=== PATIENT | male | born 1965 | race Caucasian/White ===

== ENCOUNTER 2017-10-28 20:07 | Emergency (ER) | payer MEDICAID ==
[2017-10-28 20:20] VITALS: BP 128/75
--- NOTE | 2017-10-28 22:14 | RADIOLOGY REPORT (SQ) ---
EXAM DESCRIPTION: SACRUM AND COCCYX COMPLETED DATE/TIME: 10/28/2017 10:00 pm REASON FOR STUDY: fall COMPARISON: None. NUMBER OF VIEWS: Three views. TECHNIQUE: AP, lateral, and tilt views of the sacrum and coccyx. LIMITATIONS: None. FINDINGS: MINERALIZATION: Normal. BONES: No acute fracture or dislocation. No worrisome bone lesions. SOFT TISSUES: No soft tissue swelling. No foreign body. OTHER: No other significant finding. IMPRESSION: NEGATIVE STUDY OF THE SACRUM AND COCCYX. TECHNICAL DOCUMENTATION: JOB ID: [id number] [employer]- All Rights Reserved
--- NOTE | 2017-10-28 22:18 | RADIOLOGY REPORT (SQ) ---
EXAM DESCRIPTION: L SPINE WHOLE COMPLETED DATE/TIME: 10/28/2017 10:00 pm REASON FOR STUDY: fall COMPARISON: None. NUMBER OF VIEWS: Five views including obliques. TECHNIQUE: AP, lateral, oblique, and sacral radiographic images acquired of the lumbar spine. LIMITATIONS: None. FINDINGS: MINERALIZATION: Normal. SEGMENTATION: Normal. No transitional anatomy. ALIGNMENT: Normal. VERTEBRAE: Maintained height. No fracture or worrisome bone lesion. DISCS: There is asymmetric decrease in the L2-L3 disc space heights with associated osteophytic lippi ng. POSTERIOR ELEMENTS: Pedicles and facets are intact. No pars defect or posterior arch defects. HARDWARE: None in the spine. PARASPINAL SOFT TISSUES: Normal. PELVIS: Intact as visualized. No fractures or worrisome bone lesions. SI joints intact. OTHER: No other significant finding. IMPRESSION: Degenerative changes as noted above TECHNICAL DOCUMENTATION: JOB ID: [id number] [employer]- All Rights Reserved
--- NOTE | 2017-10-28 22:35 | ER Document Report ---
ED General - General Chief Complaint: Back Pain Stated Complaint: FALL,BACK PAIN Time Seen by Provider: 10/28/17 21:32 Information source: Patient TRAVEL OUTSIDE OF THE [place] IN LAST 30 DAYS: No - HPI Onset: Just prior to arrival - Related Data Allergies/Adverse Reactions: No Known Allergies Allergy (Verified 10/28/17 20:08) Past Medical History - Social History Smoking Status: Unknown if Ever Smoked Family History: Reviewed & Not Pertinent Patient has suicidal ideation: No Patient has homicidal ideation: No - Past Medical History Cardiac Medical History: Reports: Hx Hypertension Pulmonary Medical History: Reports: Hx COPD Renal/ Medical History: Denies: Hx Peritoneal Dialysis Psychiatric Medical History: Reports: Hx Attention Deficit Hyperactivity Disorder, Hx Schizophrenia Past Surgical History: Reports: Hx Appendectomy - Immunizations Hx Diphtheria, Pertussis, Tetanus Vaccination: Yes Review of Systems - Review of Systems Constitutional: No symptoms reported EENT: No symptoms reported Cardiovascular: No symptoms reported Respiratory: No symptoms reported Gastrointestinal: No symptoms reported Genitourinary: No symptoms reported Male Genitourinary: No symptoms reported Musculoskeletal: Back pain Skin: No symptoms reported Hematologic/Lymphatic: No symptoms reported Neurological/Psychological: No symptoms reported Physical Exam - Vital signs Vitals: Temp Pulse Resp BP Pulse Ox 98.5 F 81 20 128/75 H 97 10/28/17 20:19 10/28/17 20:19 10/28/17 20:19 10/28/17 20:19 10/28/17 20:19 - Notes Notes: PHYSICAL EXAMINATION: GENERAL: Well-appearing, well-nourished and in no acute distress. HEAD: Atraumatic, normocephalic. EYES: Pupils equal round and reactive to light, extraocular movements intact, sclera anicteric, conjunctiva are normal. ENT: Nares patent, oropharynx clear without exudates. Moist mucous membranes. NECK: Normal range of motion, supple without lymphadenopathy LUNGS: Breath sounds clear to auscultation bilaterally and equal. No wheezes rales or rhonchi. HEART: Regular rate and rhythm without murmurs ABDOMEN: Soft, nontender, nondistended abdomen. No guarding, no rebound. No masses appreciated. Musculoskeletal: Normal range of motion, no pitting or edema. No cyanosis. 5 out of 5 strength all extremities. Patient ambulatory without dysfunction or cyst. NEUROLOGICAL: Cranial nerves grossly intact. Normal speech, normal gait. Normal sensory, motor exams PSYCH: Normal mood, normal affect. SKIN: Warm, Dry, normal turgor, no rashes or lesions noted. Course - Re-evaluation Re-evalutation: 10/28/17 22:37 Did tell the patient that his x-rays revealed no acute abnormality. He was wondering about a pinched nerve as he has had this in the past and thinks he may have it again. I told him the x-rays only show acute fractures. I told to follow-up with his primary medical doctor for further evaluation if the pain persists. Patient denied any urinary retention weakness in his lower extremities numbness to his groin area or any other neurologic complaints. I did tell him to return to the emergency department immediately if he started having any of these complaints. - Vital Signs Vital signs: Temp Pulse Resp BP Pulse Ox 98.5 F 81 20 128/75 H 97 10/28/17 20:19 10/28/17 20:19 10/28/17 20:19 10/28/17 20:19 10/28/17 20:19 - Diagnostic Test Radiology reviewed: Image reviewed, Reports reviewed Radiology results interpreted by me: 10/28/17 22:38 X-rays of the lumbar and sacral area were negative for any acute findings Discharge - Discharge Clinical Impression: Fall, Back pain Disposition: HOME, SELF-CARE Instructions: Low Back Pain ([facility]), Muscle Strain ([facility]), Ice Packs ([facility]), Warm Packs ([facility]) Referrals: CLAUDIA MCGEE MD [Primary Care Provider] - Follow up in 3-5 days
== END 2017-10-28 22:32 | disposition home or self-care (01) ==
LOC: ER 20:07
DX: M54.9 Dorsalgia, unspecified (principal); I10 Essential (primary) hypertension; J44.9 Chronic obstructive pulmonary disease, unspecified; W19.XXXA Unspecified fall, initial encounter
CPT/HCPCS: 72110; 72220; 99284

== ENCOUNTER 2018-02-02 21:04 | Emergency (ER) | payer MEDICAID ==
[2018-02-02] MEDS ORDERED: DILTIAZEM HCL/D5W 125 MG/125 ML RTUINJ IV PRN (22:34)
[2018-02-02] MEDS ORDERED: DILTIAZEM HCL INJ 25 MG/5 ML VIAL IV ONE (22:34)
[2018-02-02] MEDS ORDERED: DIAZEPAM INJ 10 MG/2 ML DISP.SYRIN IV ONE (22:34)
[2018-02-02] MEDS ORDERED: ASPIRIN 81 MG TABLET, CHEWABLE PO ONE (22:36)
--- NOTE | 2018-02-02 22:37 | ER Document Report ---
ED General - General Chief Complaint: Foot Pain Stated Complaint: FOOT PAIN Time Seen by Provider: 02/02/18 22:10 Cannot obtain history due to: Mentally challenged Notes: Patient is a 52-year-old male with past medical history of schizophrenia and bipolar disorder currently on Seroquel who presents by EMS with complaints of bilateral feet pain. The patient does have somewhat pressured speech at time of presentation, very tangential historian and does struggle to provide appropriate or informative history. He states his only complaint is that his feet hurt and he would like aspirin. Patient states that he does feel like he is having palpitations but does not seem to be concerned about this. He denies any known history of A. fib or any known cardiac history. History is otherwise limited secondary to patient's poor historian status. Patient does seem to be under the influence of amphetamines and does admit to regular use of methamphetamine. TRAVEL OUTSIDE OF THE [place] IN LAST 30 DAYS: No - Related Data Allergies/Adverse Reactions: No Known Allergies Allergy (Verified 10/28/17 20:08) Past Medical History - General Information source: Patient, Emergency Med Personnel Cannot obtain history due to: Mentally challenged - Social History Smoking Status: Current Every Day Smoker Frequency of alcohol use: Occasional Drug Abuse: Methamphetamine Family History: Reviewed & Not Pertinent - Past Medical History Cardiac Medical History: Reports: Hx Hypertension Pulmonary Medical History: Reports: Hx COPD Renal/ Medical History: Denies: Hx Peritoneal Dialysis Psychiatric Medical History: Reports: Hx Attention Deficit Hyperactivity Disorder, Hx Schizophrenia Past Surgical History: Reports: Hx Appendectomy - Immunizations Hx Diphtheria, Pertussis, Tetanus Vaccination: Yes Review of Systems - Review of Systems Notes: Constitutional: Negative for fever. HENT: Negative for sore throat. Eyes: Negative for visual changes. Cardiovascular: Negative for chest pain. Respiratory: Negative for shortness of breath. Gastrointestinal: Negative for abdominal pain, vomiting or diarrhea. Genitourinary: Negative for dysuria. Musculoskeletal: Positive for bilateral lower feet pain Skin: Negative for rash. Neurological: Negative for headaches, weakness or numbness. 10 point ROS negative except as marked above and in HPI. Physical Exam - Vital signs Vitals: Temp Pulse Resp BP Pulse Ox 98.0 F 149 H 18 148/90 H 99 02/02/18 21:55 02/02/18 21:55 02/02/18 21:55 02/02/18 21:55 02/02/18 21:55 Interpretation: Tachycardic Notes: PHYSICAL EXAMINATION: GENERAL: Appears somewhat disheveled but in no acute distress HEAD: Atraumatic, normocephalic. EYES: Pupils equal round and reactive to light, extraocular movements intact, sclera anicteric, conjunctiva are normal. ENT: nares patent, oropharynx clear without exudates. Moist mucous membranes. NECK: Normal range of motion, supple without lymphadenopathy LUNGS: Breath sounds clear to auscultation bilaterally and equal. No wheezes rales or rhonchi. HEART: Irregularly irregular tachycardia without murmurs ABDOMEN: Soft, nontender, normoactive bowel sounds. No guarding, no rebound. No masses appreciated. EXTREMITIES: Normal range of motion, no pitting or edema. No cyanosis. NEUROLOGICAL: No focal neurological deficits. Moves all extremities spontaneously and on command. PSYCH: Moderately pressured speech, tangential thought process, somewhat agitated SKIN: Warm, Dry, normal turgor, there are blisters on the plantar surfaces of the feet bilaterally without any surrounding calluses, erosions or cellulitis Course - Re-evaluation Re-evalutation: 02/02/18 22:36 Patient presents in A. fib with rapid ventricular response and had rates into the 160s at time of my initial assessment but has spontaneously converted back to normal sinus rhythm. This without any medications. His only complaint is bilateral lower extremity pain which is chronic, has been ongoing for several months, patient states is from walking around so much. Patient has very pressured speech, somewhat agitated but is redirectable. Patient denies any illicit drug use but does appear to either be acutely psychotic or heavily under the influence of a stimulant likely amphetamines. Will provide lorazepam , aspirin per patient's request, obtain basic laboratories and reassess. 02/02/18 23:45 Labs unremarkable. Patient continues to be in normal sinus rhythm. He has continued to deny any chest pain or shortness of breath even when he was in A. fib with RVR. He has not provided a urine sample and this will not home management supervisor at this point. Patient continues to be completely asymptomatic. He is now much more calm, relaxed, alert and oriented. No indication for involuntary commitment. I have gone to the bedside explained to the patient at length the need for close outpatient follow-up, and I provided him a referral to cardiology. Given that he is normal sinus rhythm at this time, normal blood pressure, there is no indication for anticoagulation or rate control agents. At this time will discharge with return precautions and follow-up recommendations. Verbal discharge instructions given a the bedside and opportunity for questions given. Medication warnings reviewed. Patient is in agreement with this plan and has verbalized understanding of return precautions and the need for primary care follow-up in the next 24-72 hours. - Vital Signs Vital signs: Temp Pulse Resp BP Pulse Ox 98.0 F 149 H 24 H 136/92 H 97 02/02/18 21:55 02/02/18 21:55 02/03/18 00:01 02/03/18 00:02 02/03/18 00:02 - Laboratory Result Diagrams: 02/02/18 22:25 02/02/18 22:25 Laboratory results interpreted by me: 02/02/18 02/02/18 22:25 22:25 WBC 14.1 H RBC 4.25 L Hgb 13.2 L Monocytes % 13.3 H Absolute Neutrophils 10.3 H Absolute Monocytes 1.9 H Potassium 3.4 L Glucose 116 H - EKG Interpretation by Me Additional EKG results interpreted by me: 02/02/18 23:51 EKG 1: A. fib with rapid ventricular response, rate 163. No ST elevations or depressions. EKG 2, normal sinus rhythm, rate 79. No ST elevations or depressions. QTC is 468. Discharge - Discharge Clinical Impression: Paroxysmal atrial fibrillation with rapid ventricular response, Anxiety, Bilateral foot pain Condition: Good Disposition: HOME, SELF-CARE Additional Instructions: You have paroxysmal atrial fibrillation which means that your heart intermittently beats too quickly and irregularly. You have spontaneously gone back into a normal rhythm tonight. However, most patients who have this condition do go in and out of A. fib. You need to follow-up with cardiology. I have provided you information for a local motor vehicle salesperson. Please contact the office in the morning. Return to the emergency department immediately if you develop chest pain, shortness of breath and pass out, develop a fever, or have any other symptoms that are worrisome to you. Referrals: INES ROCHA MD [ACTIVE STAFF] - Follow up in 3-5 days
[2018-02-02 22:39] LABS: ABSOLUTE BASOPHILS # (AUTO) 0.1 10^3/uL (0.0-0.2); ABSOLUTE LYMPHOCYTES (AUTO) 1.8 10^3/uL (0.5-4.7); ABSOLUTE MONOCYTES (AUTO) 1.9 10^3/uL (0.1-1.4); ABSOLUTE NEUT (AUTO) 10.3 10^3/uL (1.7-8.2); BASOPHILS % (AUTO) 0.4 % (0-2); EOSINOPHILS % (AUTO) 0.1 % (0-6); HEMATOCRIT 39.4 % (37.9-51.0); HEMOGLOBIN 13.2 g/dL (13.5-17.0); MEAN CORPUSCULAR HGB CONC 33.4 g/dL (32.0-36.0); MEAN CORPUSCULAR VOLUME 93 fl (80-97); MONOCYTES % (AUTO) 13.3 % (3-13); PLATELET COUNT 299 10^3/uL (150-450); RED BLOOD COUNT 4.25 10^6/uL (4.35-5.55); RED CELL DISTRIBUTION WIDTH 12.9 % (11.5-14.0); SEGMENTED NEUTROPHILS % (AUTO) 73.2 % (42-78); TOTAL CELLS COUNTED % (AUTO) 100 %; WHITE BLOOD COUNT 14.1 10^3/uL (4.0-10.5)
[2018-02-02 22:58] LABS: ANION GAP 14 (5-19); BLOOD UREA NITROGEN 11 mg/dL (7-20); CALCIUM 9.4 mg/dL (8.4-10.2); CARBON DIOXIDE 26 mmol/L (22-30); CHLORIDE 102 mmol/L (98-107); GLUCOSE 116 mg/dL (75-110); POTASSIUM 3.4 mmol/L (3.6-5.0); SODIUM 142.4 mmol/L (137-145)
[2018-02-02 23:00] LABS: ALCOHOL < 10 mg/dL (NONE DETECTED)
--- NOTE | 2018-02-02 23:54 | EKG REPORT ---
SEVERITY:- ABNORMAL ECG - ATRIAL FIBRILLATION MINIMAL ST DEPRESSION, INFERIOR LEADS PROLONGED QT INTERVAL : Confirmed by: Juana Smith 02-Feb-2018 23:54:04
--- NOTE | 2018-02-02 23:54 | EKG REPORT ---
SEVERITY:- NORMAL ECG - SINUS RHYTHM : Confirmed by: Juana Smith 02-Feb-2018 23:53:54
[2018-02-03 00:11] VITALS: BP 136/92
== END 2018-02-03 00:14 | disposition home or self-care (01) ==
LOC: ER 21:04
DX: I48.0 Paroxysmal atrial fibrillation (principal); F41.9 Anxiety disorder, unspecified; M79.672 Pain in left foot; M79.671 Pain in right foot; F20.9 Schizophrenia, unspecified; F31.9 Bipolar disorder, unspecified; F17.200 Nicotine dependence, unspecified, uncomplicated; I10 Essential (primary) hypertension; J44.9 Chronic obstructive pulmonary disease, unspecified
CPT/HCPCS: 93005; 99285; 96374; 36415; 80307; 85025; 80048; 84484; 93010; J3360

== ENCOUNTER 2018-02-03 02:12 | Emergency (ER) | payer MEDICAID ==
--- NOTE | 2018-02-03 02:24 | ER Document Report ---
ED General - General Stated Complaint: PSYCH EVAL Time Seen by Provider: 02/03/18 02:22 Cannot obtain history due to: Altered mental status Notes: Patient is a 52 year old male past medical history of bipolar disorder, currently on Seroquel who presents by EMS and police after being found naked in the street. No additional history can be obtained from the patient at this point. TRAVEL OUTSIDE OF THE [place] IN LAST 30 DAYS: No - Related Data Allergies/Adverse Reactions: No Known Allergies Allergy (Verified 10/28/17 20:08) Past Medical History - General Information source: Emergency Med Personnel Cannot obtain history due to: Dementia - Social History Smoking Status: Unknown if Ever Smoked Family History: Reviewed & Not Pertinent - Past Medical History Cardiac Medical History: Reports: Hx Hypertension Pulmonary Medical History: Reports: Hx COPD Renal/ Medical History: Denies: Hx Peritoneal Dialysis Psychiatric Medical History: Reports: Hx Attention Deficit Hyperactivity Disorder, Hx Schizophrenia Past Surgical History: Reports: Hx Appendectomy - Immunizations Hx Diphtheria, Pertussis, Tetanus Vaccination: Yes Review of Systems - Review of Systems -: Yes ROS unobtainable due to patient's medical condition Physical Exam - Vital signs Interpretation: Normal Notes: PHYSICAL EXAMINATION: GENERAL: In no distress, mumbling incomprehensible noises HEAD: Atraumatic, normocephalic. EYES: Pupils equal round and reactive to light, extraocular movements intact, sclera anicteric, conjunctiva are normal. ENT: nares patent, oropharynx clear without exudates. Moderately dry mucous membranes y NECK: Normal range of motion, supple without lymphadenopathy LUNGS: Breath sounds clear to auscultation bilaterally and equal. No wheezes rales or rhonchi. HEART: Regular rate and rhythm without murmurs ABDOMEN: Soft, nontender, normoactive bowel sounds. No guarding, no rebound. No masses appreciated. EXTREMITIES: No pitting or edema. No cyanosis. NEUROLOGICAL: No focal neurological deficits. Moves all extremities spontaneously. PSYCH: Moderate and comprehensive will sounds, intermittently yelling SKIN: Warm, Dry, normal turgor, no rashes or lesions noted. Course - Re-evaluation Re-evalutation: 02/03/18 02:22 Patient returns by EMS and police, entirely decompensated from when I discharged him several hours ago. At time of discharge patient was alert, oriented, no longer had pressured speech and was able to verbalize understanding of discharge instructions. Patient was apparently found naked in the middle of the street, had much increased pressured speech, was not redirectable, was placed under involuntary commitment by police on scene and brought back to the emergency department. At time of my assessment the patient has unintelligible speech, yelling intermittently. Physical examination remains unchanged from prior. He continues to be in normal sinus rhythm. It appears that the patient's initial pressured speech at time of prior presentation was likely secondary to underlying decompensated bipolar disorder as opposed to methamphetamine use. I will maintain the patient under involuntary commitment, send complete medical screening laboratories, and have him evaluate psychiatry in the morning. Discharge - Discharge Clinical Impression: Acute psychosis, Agitation Condition: Fair Disposition: PSYCH HOSP/UNIT
[2018-02-03] MEDS ORDERED: HALOPERIDOL LACTATE INJ 5 MG/1 ML VIAL IM ONE (02:44)
[2018-02-03 02:46] LABS: ABSOLUTE BASOPHILS # (AUTO) 0.1 10^3/uL (0.0-0.2); ABSOLUTE LYMPHOCYTES (AUTO) 1.8 10^3/uL (0.5-4.7); ABSOLUTE MONOCYTES (AUTO) 1.8 10^3/uL (0.1-1.4); ABSOLUTE NEUT (AUTO) 7.5 10^3/uL (1.7-8.2); BASOPHILS % (AUTO) 0.8 % (0-2); EOSINOPHILS % (AUTO) 0.3 % (0-6); HEMATOCRIT 39.4 % (37.9-51.0); HEMOGLOBIN 13.1 g/dL (13.5-17.0); MEAN CORPUSCULAR HEMOGLOBIN 30.8 pg (27.0-33.4); MEAN CORPUSCULAR HGB CONC 33.1 g/dL (32.0-36.0); MEAN CORPUSCULAR VOLUME 93 fl (80-97); MONOCYTES % (AUTO) 15.9 % (3-13); PLATELET COUNT 298 10^3/uL (150-450); RED BLOOD COUNT 4.24 10^6/uL (4.35-5.55); TOTAL CELLS COUNTED % (AUTO) 100 %; WHITE BLOOD COUNT 11.2 10^3/uL (4.0-10.5)
[2018-02-03 02:59] LABS: ALANINE AMINOTRANSFERASE 56 U/L (21-72); ALBUMIN 4.2 g/dL (3.5-5.0); ALKALINE PHOSPHATASE 83 U/L (38-126); ANION GAP 15 (5-19); ASPARTATE AMINO TRANSFERASE 61 U/L (17-59); BILIRUBIN,DIRECT 0.3 mg/dL (0.0-0.4); BILIRUBIN,TOTAL 0.8 mg/dL (0.2-1.3); BLOOD UREA NITROGEN 10 mg/dL (7-20); CARBON DIOXIDE 22 mmol/L (22-30); CHLORIDE 106 mmol/L (98-107); GLUCOSE 111 mg/dL (75-110); POTASSIUM 3.5 mmol/L (3.6-5.0); SALICYLATE 1.7 mg/dL (2.0-20.0); SODIUM 142.6 mmol/L (137-145); TOTAL PROTEIN 6.8 g/dL (6.3-8.2)
[2018-02-03 03:09] LABS: ACETAMINOPHEN < 10 ug/mL (10-30); ALCOHOL < 10 mg/dL (NONE DETECTED)
[2018-02-03] MEDS ORDERED: ZIPRASIDONE MESYLATE INJ/PF 20 MG SDV IM ONE (06:17)
--- NOTE | 2018-02-03 07:03 | EKG REPORT ---
SEVERITY:- ABNORMAL ECG - SINUS RHYTHM BORDERLINE LEFT AXIS DEVIATION LOW VOLTAGE IN FRONTAL LEADS PROLONGED QT INTERVAL : Confirmed by: Mikhail Engel MD 03-Feb-2018 07:03:17
--- NOTE | 2018-02-03 09:48 | ER Document Report ---
Doctor's Note Notes: 02/03/18 09:47 Rounds: Chart reviewed. Patient sleeping at this time. He is in four-point restraints because of aggression towards the staff and because of displaying his new body to everyone walking by his room. Patient is here to be evaluated for agitation and aggression with a history of bipolar disorder. He was seen twice yesterday, the first time being discharged, then returning in worse condition. Labs are normal except for a white count of 11,200. Vital signs are all normal. Patient appears to be medically stable for transfer or discharge. Gabriel Neil MD
[2018-02-03 20:32] LABS: APPEARANCE,URINE CLEAR; BILIRUBIN,URINE NEGATIVE (NEGATIVE); COLOR,URINE YELLOW; GLUCOSE, URINE NEGATIVE (NEGATIVE); KETONES,URINE 80 mg/dL (NEGATIVE); LEUKOCYTE ESTERASE,URINE NEGATIVE (NEGATIVE); NITRITE,URINE NEGATIVE (NEGATIVE); PROTEIN,URINE NEGATIVE (NEGATIVE); URINE SPECIFIC GRAVITY 1.013; UROBILINOGEN,URINE NEGATIVE mg/dL (<2.0)
[2018-02-03 20:51] LABS: URINE AMPHETAMINES SCREEN NEGATIVE; URINE BARBITURATES SCREEN NEGATIVE; URINE BENZODIAZEPINES SCREEN UNCONFIRMED POSITIVE; URINE COCAINE SCREEN NEGATIVE; URINE MARIJUANA (THC) SCREEN UNCONFIRMED POSITIVE; URINE METHADONE SCREEN NEGATIVE; URINE PHENCYCLIDINE SCREEN NEGATIVE
--- NOTE | 2018-02-04 09:07 | PSYCHOLOGICAL NOTE ---
<IMER JONAS - Last Filed: 02/04/18 08:35> Psych Note - Psych Note Psych Note: Reason for consult: altered mental status Consent permissions: son and daughter; numbers obtained from chart The patient is a 52-year-old male, with a past history of opiate use. He presents on an IVC filled out by the police after he was found naked in the middle of [facility] and refused to leave. IVC paperwork stated he was aggressive with officers and got combative when they forced him to leave. The mental health team was unable to engage in an assessment yesterday due to his altered mental status. Patient was awake and able to speak with the mental health team today. Patient reported he did not know how he got to the hospital or what happened that required him to be admitted. When asked about if he was using drugs he stated, "probably so." He also stated he is, "clean as of right this second." Patient admitted that he has not been taking suboxone, which is found in the [place] Controlled Substance Reporting System as not having his Suboxone filled since August 2017. Patient was unable to give information about living information or his children's contact information. Patient stated, "he just would like them to come and get him and get out of here." Patient is alert and orientated to person and place. Mood is euthymic with congruent affect. Attention and concentration are poor with perceived lack of eye contact. Obvious psychomotor agitation present. Patient appears to have problems with immediate memory recall but alludes to this "not being the first time and it might take me awhile." Insight, judgment, impulse control are poor due to opiate use. Patient will be reassessd later on in the day. 292.9 (F11.99) Unspecified Opioid-Related Disorder per history of Suboxone use Impression/plan: <FELICITY LIM - Last Filed: 02/05/18 13:38> Psych Note - Psych Note Psych Note: Diagnosis 292.9 (F11.99) Unspecified Opioid-Related Disorder per history of past Suboxone use 298.9 (F29) Unspecified psychosis Medication recommendations per [facility]'s contracted psychiatrist, Dr. Abel GARCÍA are as follows 1. Depakote 500 mg twice daily 2. BuSpar 10 mg twice daily Impression/Plan: patient is recommended to continue under IVC. Patient has been demonstrating paranoia and unable to provide clear information on contacts or history. Patient's toxicology report indicates marijuana and benzodiazepines however patient did receive benzodiazepine during his previous admission ( patient was discharged and returned 1 hour later). Clinician notes there are no opiates identified in the patient's toxicology report. All attempts at contacting family for additional collateral information has been unsuccessful at this time. Medication recommendations have been provided. Patient will be reevaluated. Dr. Taylor was consulted and the care management this patient; attending physician is agreement with augmentations and disposition.
--- NOTE | 2018-02-04 09:35 | ER Document Report ---
Doctor's Note Notes: 02/04/18 09:34 Patient was seen and evaluated this morning. Resting comfortably. No acute distress. Will follow recommendations and plan of our mental health team. Patient not requesting anything at this time. Patient still seems mildly confused. Repeated himself several times during the conversation. 02/04/18 09:57 A review of the records shows the patient was here approximately 3 days ago for atrial fibrillation with a rapid ventricular response. Mental health team states they have no clear reason why he has mental status changes. It is possible he could have had a stroke. Will begin with the CT head and then follow-up with MR brain, ultrasound of the carotids and possible echocardiogram of the heart if needed to rule out potential blood clot with showering effect which could have caused abnormal mental response. 02/04/18 11:41 CT head unremarkable. Proceeding with MRI brain 02/04/18 14:23 Unable to perform MRI because patient became more psychotic so MRI was uncomfortable keeping him. Patient sent back.
[2018-02-04] MEDS ORDERED: LORAZEPAM 1 MG TABLET PO ONE (10:05)
--- NOTE | 2018-02-04 10:41 | RADIOLOGY REPORT (SQ) ---
EXAM DESCRIPTION: CT HEAD WITHOUT COMPLETED DATE/TIME: 02/04/2018 10:24 am REASON FOR STUDY: altered mental status COMPARISON: 12/04/2013. TECHNIQUE: Axial images acquired through the brain without intravenous contrast. Images reviewed wi th bone, brain and subdural windows. Images stored on PACS. All CT scanners at this facility use dose modulation, iterative reconstruction, and/or weight based d osing when appropriate to reduce radiation dose to as low as reasonably achievable (ALARA). [facility]: Dose Right [facility]: CareDose [facility]: Dose Right [facility]: Teradose 4D [facility]: [employer] RADIATION DOSE: CT Rad equipment meets quality standard of care and radiation dose reduction techniq ues were employed. CTDIvol: 64.6 mGy. DLP: 1292 mGy-cm. mGy. LIMITATIONS: None. FINDINGS: VENTRICLES: Normal size and contour. CEREBRUM: No masses. No hemorrhage. No midline shift. No evidence for acute infarction. Normal gra y/white matter differentiation. No areas of low density in the white matter. CEREBELLUM: No masses. No hemorrhage. No alteration of density. No evidence for acute infarction. EXTRAAXIAL SPACES: No fluid collections. No masses. ORBITS AND GLOBE: No intra- or extraconal masses. Normal contour of globe without masses. CALVARIUM: No fracture. PARANASAL SINUSES: No fluid or mucosal thickening. SOFT TISSUES: No mass or hematoma. OTHER: No other significant finding. IMPRESSION: NORMAL BRAIN CT WITHOUT CONTRAST. EVIDENCE OF ACUTE STROKE: NO. COMMENT: Quality ID # [id number]: Final reports with documentation of one or more dose reduction techniques (e.g., Automated exposure control, adjustment of the mA and/or kV according to patient size, use of iterative reconstruction technique) TECHNICAL DOCUMENTATION: JOB ID: [id number] [employer]- All Rights Reserved Reading location - IP/workstation name: [email or web address]
[2018-02-04] MEDS ORDERED: LORAZEPAM 1 MG TABLET ONE (13:27)
[2018-02-04] MEDS ORDERED: LORAZEPAM 1 MG TABLET PO PRN (13:30)
[2018-02-04] MEDS: DIVALPROEX SODIUM 250 MG TAB.SR.24H PO SCH (18:11)
[2018-02-04] MEDS: BUSPIRONE HCL 10 MG TABLET PO SCH (18:12)
[2018-02-04] MEDS ORDERED: CLONIDINE 0.2 MG/24 HR PATCH.TDWK TD ONE (18:47)
[2018-02-05] MEDS ORDERED: ACETAMINOPHEN 325 MG TABLET PO ONE (03:37)
--- NOTE | 2018-02-05 09:19 | ER Document Report ---
Doctor's Note Notes: 02/05/18 12:19 As the rounding physician for our psychiatric patients, I have reviewed the chart, vitals, lab work. Patient has been examined and noted to be stable talkative. I am awaiting mental health in put.
[2018-02-05] MEDS: BUSPIRONE HCL 10 MG TABLET PO SCH ×2 (11:07→18:01)
[2018-02-05] MEDS: DIVALPROEX SODIUM 250 MG TAB.SR.24H PO SCH ×2 (11:08→18:01)
--- NOTE | 2018-02-05 16:18 | PSYCHOLOGICAL NOTE ---
Psych Note - Psych Note Psych Note: Reason for consult: altered mental status Consent permissions: Fredy, older brother The patient is a 52-year-old male, with a past history of opiate use. He presents on an IVC filled out by the police after he was found naked in the middle of [facility] and refused to leave. IVC paperwork stated he was aggressive with officers and got combative when they forced him to leave. The mental health team was unable to engage in an assessment yesterday due to his altered mental status. Clinician contacted [facility]. They disclosed the patient has a diagnosis of schizoaffective; depressive type. There are no known history of inpatient psychiatric treatments. Patient's last outpatient appointment was 09/04/2017. Clinician spoke with Fredy, patient's older brother. He states he saw the patient last weekend through the [employer] store window. He states that patient has always acted like he has mental health issues because he "keeps living in the past not the future." He continues state that "he has been on drugs lately. " He states the patient has a history of crystal meth use "I think he is used much of it... He is crazy and does some stupid stuff." He continues state he does not need to to be in senior living he needs mental health treatment. He continued to state "he goes in senior living and finds God but then forgets about him when he comes out... I cannot do anything with him... I have tried and tried and tried but cannot do anything." Medication recommendations per [facility]'s contracted psychiatrist, Dr. Abel GARCÍA are as follows 1. Depakote 500 mg twice daily 2. BuSpar 10 mg twice daily Diagnosis 295.70 (F25.1) schizoaffective disorder; depressive type per records from [facility] 292.9 (F11.99) Unspecified Opioid-Related Disorder per history of past Suboxone use Impression/Plan: patient is recommended to continue under IVC. Patient has been demonstrating paranoia and unable to provide clear information on contacts or history. Patient's toxicology report indicates marijuana and benzodiazepines however patient did receive benzodiazepine during his previous admission ( patient was discharged and returned 1 hour later). Clinician notes there are no opiates identified in the patient's toxicology report. All attempts at contacting family for additional collateral information has been unsuccessful at this time. Medication recommendations have been provided. Patient will be reevaluated. Dr. Taylor was consulted and the care management this patient; attending physician is agreement with augmentations and disposition.
[2018-02-05] MEDS ORDERED: CLONIDINE 0.2 MG/24 HR PATCH.TDWK TD ONE (17:32)
[2018-02-06 04:53] VITALS: BP 118/72
[2018-02-06] MEDS: DIVALPROEX SODIUM 250 MG TAB.SR.24H PO SCH ×2 (08:54→16:54)
[2018-02-06] MEDS: BUSPIRONE HCL 10 MG TABLET PO SCH ×2 (08:54→16:54)
--- NOTE | 2018-02-06 09:57 | ER Document Report ---
Doctor's Note Notes: 02/06/18 09:56 Rounds: Chart reviewed and patient interviewed. Patient initially, upon presentation, was very agitated and aggressive in his behavior. He had to be restrained. He has a diagnosis of bipolar disorder. Patient thinks he was out of his medicines. Vital signs have all been normal. Lab studies essentially normal with a white count of slightly elevated 11,200 and a potassium of 3.5. Drug screen positive for marijuana. Also positive for benzos, but patient may have received them to sedate him when he came in. Patient appears to be medically stable for transfer or discharge. Gabriel Neil MD
--- NOTE | 2018-02-06 23:33 | PSYCHOLOGICAL NOTE ---
Psych Note - Psych Note Psych Note: Met with Patient for a re-evaluation. He was eating dinner and had an appropriate conversation with regard to his food, his stay at the hospital, etc. He advised he frequently uses methamphetamine and method of injection is a needle. He reported the methamphetamine gave him energy and made his brain feel "crazy." He admitted to getting is disability check at the beginning of each month and spending it on meth and when he has no money left, he is forced to fend for himself. When advised he was going to be discharged this evening, he instantly began acting like a small child, began stating he was "paranoid" and needed to "get my schizophrenia under control", and other similar comments. Patient was advised his presentation over the past few days were not consistent with any known mental health diagnoses and given his depakote level was within therapeutic limits, his behavior was even less likely to be a result of mental health issues and more likely to be related to volitional behavior with secondary gain. In fact, when advised of this information and told he could stop acting the part, he sat up in his chair and appropriately asked if he could finish his dinner and use the bathroom before he left. He was advised he could do both and use the phone to call his brother for a ride home. Patient was alert and oriented to person, place, time and circumstance. Mood was euthymic and affect was mood congruent. He denied suicidal / homicidal ideation, intent or plan. He denied auditory / visual hallucinations and delusions were not present. Thought processes were rational, linear, and organized. Intellectual abilities were estimated within the average range. Attention and concentration was within normal limits. Conversational speech was within normal range for rate, tone, and prosody. Insight, judgment, and impulse control was fair. No medication recommendations were made at this time. Diagnoses: 1. Stimulant Use Disorder, Moderate 2. Homelessness Impression / Plan: Patient is psychiatrically clear for discharge. Patient's presentation is erratic and not consistent with mental health diagnoses. He appears to perform as staff enter his room or when providers attempt to evaluate him. Patient has a long history of methamphetamine use and though reports a history of schizoaffective disorder, it is more likely his reported psychosis and mood difficulties are secondary to his historical drug use. Patient is advised to return to his outpatient provider for re-evaluation and to provide them information regarding his drug use and to consider detox for his substance abuse problem. Patient was provided outpatient resources upon discharge. ED Physician in agreement with recommendation and disposition.
== END 2018-02-06 18:00 | disposition home or self-care (01) ==
LOC: ER 02:12
DX: F23 Brief psychotic disorder (principal); F31.9 Bipolar disorder, unspecified; D72.829 Elevated white blood cell count, unspecified; I10 Essential (primary) hypertension; J44.9 Chronic obstructive pulmonary disease, unspecified; Z78.1 Physical restraint status
CPT/HCPCS: 93005; 99285; 36415; 80307 ×4; 85025; 80053; 81001; 80164; 93010; J1630; J3490 ×7; J3486

== ENCOUNTER 2018-03-26 05:56 | Emergency (ER) | payer MEDICAID ==
--- NOTE | 2018-03-26 06:29 | ER Document Report ---
ED General - General Stated Complaint: PSYCH EVAL Time Seen by Provider: 03/26/18 06:02 Notes: 52-year-old male with a history of schizophrenia presents to the emergency my complaint suicidal thoughts. Patient stated he has not been taking his medications of Seroquel. He states that he was hearing voices and thinks people are out to get him. He has considered suicide and would stab himself in the neck with a knife. Patient denies any physical complaints of chest pain or shortness of breath. He denies any fever chills cough or sore throat. Patient stated he has been in and out of psychiatric institutions quite a bit. The patient does feels if somebody is out to get him. He does seem to have a little insight into why he is paranoid and should be taking his meds. TRAVEL OUTSIDE OF THE [place] IN LAST 30 DAYS: No - Related Data Allergies/Adverse Reactions: No Known Allergies Allergy (Verified 03/05/18 20:53) Past Medical History - Social History Smoking Status: Current Every Day Smoker Family History: Reviewed & Not Pertinent - Past Medical History Cardiac Medical History: Reports: Hx Hypertension Pulmonary Medical History: Reports: Hx COPD Renal/ Medical History: Denies: Hx Peritoneal Dialysis Psychiatric Medical History: Reports: Hx Attention Deficit Hyperactivity Disorder, Hx Schizophrenia Past Surgical History: Reports: Hx Appendectomy - Immunizations Hx Diphtheria, Pertussis, Tetanus Vaccination: Yes Review of Systems - Review of Systems Cardiovascular: denies: Chest pain Respiratory: denies: Cough, Short of breath Gastrointestinal: denies: Abdominal pain Neurological/Psychological: Hallucinations, Suicidal ideation -: Yes All other systems reviewed and negative Physical Exam - Notes Notes: GENERAL_APPEARANCE: well_nourished, alert, cooperative, no_acute_distress, no_ obvious_discomfort. VITALS: reviewed, see vital signs table. HEAD: no_swelling\tenderness on the head. EYES: PERRL, EOMI, conjunctiva_clear. NOSE: no_nasal_discharge. MOUTH: (-)decreased moisture. THROAT: no_throat_inflammation, no_airway_obstruction. no_lymphadenopathy NECK: supple, no_neck_tenderness, (-)thyromegaly. BACK: no_back_tenderness. CHEST_WALL: no_chest_tenderness. LUNGS: no_wheezing, no_rales, no_rhonchi, (-)accessory muscle use, good air exchange bilateral. HEART: normal_rate, normal_rhythm, normal_S1, normal_S2, (-)S3, (-)S4, no_ murmur, no_rub. ABDOMEN: normal_BS, soft, no_abd_tenderness, (-)guarding, (-)rebound, no_ organomegaly, no_abd_masses. EXTREMITIES: good pulses in all_extremities, no_swelling\tenderness in the extremities, no_edema. SKIN: warm, dry, good_color, no_rash. MENTAL_STATUS: speech_clear, oriented_X_3, normal_affect, responds_ appropriately to questions. NEURO: Neg Motor or Sensory Deficits on exam, CN 2-12 intact, DTR 2+ symmetric x 4, No cerbellar signs PSYCH: Patient does endorse suicidal thoughts and the only plan he could come up with was to use a knife to stab himself in the neck. The patient does states he is hearing voices and thinks people are out to get him. Denies any specific visual hallucinations but states he does see shadows from time to time. The patient does seem to have insight into his situation and does state he should be taking his medications but is not taking them. Course - Re-evaluation Re-evalutation: 03/26/18 06:28 The patient was brought in for suicidal thoughts. He does have a loose plan however he may spontaneously made this up. Patient does have a long history of schizophrenia he is endorsing noncompliance with his medications which would explain his paranoia and hallucinations. We will have the patient seen by psychiatry for clearance. I reviewed the patient's laboratory work. The patient is medically stable for inpatient or outpatient psychiatric care is required and recommended by psychiatry. - Laboratory Result Diagrams: 03/26/18 06:30 03/26/18 06:30 Laboratory results interpreted by me: 03/26/18 03/26/18 03/26/18 06:30 06:30 08:45 RBC 4.20 L Hgb 13.4 L Urine Ketones 20 H Urine Urobilinogen 2.0 H Salicylates < 1.0 L Acetaminophen < 10 L Discharge - Discharge Clinical Impression: Suicidal ideations Condition: Good
[2018-03-26 06:40] LABS: ABSOLUTE BASOPHILS # (AUTO) 0.1 10^3/uL (0.0-0.2); ABSOLUTE LYMPHOCYTES (AUTO) 1.9 10^3/uL (0.5-4.7); ABSOLUTE MONOCYTES (AUTO) 1.2 10^3/uL (0.1-1.4); ABSOLUTE NEUT (AUTO) 6.8 10^3/uL (1.7-8.2); BASOPHILS % (AUTO) 0.7 % (0-2); EOSINOPHILS % (AUTO) 0.2 % (0-6); HEMATOCRIT 38.6 % (37.9-51.0); HEMOGLOBIN 13.4 g/dL (13.5-17.0); LYMPHOCYTES % (AUTO) 18.7 % (13-45); MEAN CORPUSCULAR HEMOGLOBIN 31.9 pg (27.0-33.4); MEAN CORPUSCULAR HGB CONC 34.7 g/dL (32.0-36.0); MEAN CORPUSCULAR VOLUME 92 fl (80-97); PLATELET COUNT 261 10^3/uL (150-450); RED CELL DISTRIBUTION WIDTH 13.4 % (11.5-14.0); SEGMENTED NEUTROPHILS % (AUTO) 68.4 % (42-78); TOTAL CELLS COUNTED % (AUTO) 100 %
[2018-03-26 06:53] LABS: ALANINE AMINOTRANSFERASE 25 U/L (21-72); ALBUMIN 4.6 g/dL (3.5-5.0); ALKALINE PHOSPHATASE 75 U/L (38-126); ANION GAP 13 (5-19); ASPARTATE AMINO TRANSFERASE 54 U/L (17-59); BILIRUBIN,DIRECT 0.3 mg/dL (0.0-0.4); BILIRUBIN,TOTAL 0.7 mg/dL (0.2-1.3); BLOOD UREA NITROGEN 17 mg/dL (7-20); CARBON DIOXIDE 30 mmol/L (22-30); CHLORIDE 98 mmol/L (98-107); GLUCOSE 102 mg/dL (75-110); POTASSIUM 4.2 mmol/L (3.6-5.0); SODIUM 141.3 mmol/L (137-145); TOTAL PROTEIN 7.6 g/dL (6.3-8.2)
[2018-03-26 06:55] LABS: ACETAMINOPHEN < 10 ug/mL (10-30); ALCOHOL < 10 mg/dL (NONE DETECTED); SALICYLATE < 1.0 mg/dL (2.0-20.0)
[2018-03-26 09:01] LABS: APPEARANCE,URINE CLEAR; BILIRUBIN,URINE NEGATIVE (NEGATIVE); COLOR,URINE YELLOW; GLUCOSE, URINE NEGATIVE (NEGATIVE); KETONES,URINE 20 mg/dL (NEGATIVE); LEUKOCYTE ESTERASE,URINE NEGATIVE (NEGATIVE); NITRITE,URINE NEGATIVE (NEGATIVE); PROTEIN,URINE NEGATIVE (NEGATIVE); URINE SPECIFIC GRAVITY 1.012
[2018-03-26 09:14] LABS: URINE AMPHETAMINES SCREEN NEGATIVE; URINE BARBITURATES SCREEN NEGATIVE; URINE BENZODIAZEPINES SCREEN NEGATIVE; URINE COCAINE SCREEN NEGATIVE; URINE MARIJUANA (THC) SCREEN NEGATIVE; URINE METHADONE SCREEN NEGATIVE; URINE PHENCYCLIDINE SCREEN NEGATIVE
--- NOTE | 2018-03-26 09:52 | PSYCHOLOGICAL NOTE ---
Psych Note - Psych Note Psych Note: Reason for Consult: suicidal ideation Consent Permissions; son Colby Martell, ; [id number] Sofia 52-year-old male with a reported history of schizophrenia presents to the emergency my complaint suicidal thoughts. Patient stated he has not been taking his medications of Seroquel. He states that he was hearing voices and thinks people are out to get him. He has considered suicide and would stab himself in the neck with a knife. Patient stated he has been in and out of psychiatric institutions quite a bit. The patient does feels if somebody is out to get him. He does seem to have a little insight into why he is paranoid and should be taking his meds. Patient disclosed that he is having problems with confusion and paranoia. Patient disclosed he feels like someone is going to attack him. Patient disclosed that he has been on Seroquel since [facility] put him on it about a month ago. He reports other medications but is unable to disclose what they are. Patient reported that the last 2-3 weeks he has been living with his son however "I left him on [place]... Too much was going on ... I was paranoid...that is why I was staying by the police and lock plater departments." When asked about his drug use be denies any resent use but stated; "they were telling me I got a hold of some bath salts up in [facility]." when asked about thoughts of harming himself or others patient states "no... I do not know... I am confused." Clinician attempted contact with patient's son Colby Martell ebony at [phone]; left message Sofia, , Patient was "in a bad way from a drug" we took him to [facility] and they sent him to [facility] and then went back to [facility]. He was doing really well and was straightened up, "I guaranty you he is using drugs again, that is what he was like last time....It doesn't matter how many times we help him...Last time he was really crazy, somebody had given him something." She told clinician to tell patient to call Karolyn, his ex-, maybe she would assist him. Patient is alert and orientated to person, place, time and circumstance. Mood is euthymic with congruent affect. Patient reports confusion and paranoia however is orientated, provides historic information, and is calmly laying in bed. No psychomotor agitation, makes good eye contact. Patient denies suicidal and homicidal ideation. Patient is not demonstrating any behaviors indicating psychosis i.e. organized linear thought processes. Attention and concentration are fair. Insight, judgment, impulse control are historically poor due to long-term methamphetamine abuse. Clinician met with patient again. Patient complained he has not been able to sleep because the ED is too loud. He disclosed that he does not have anywhere to go because he got into a fight with his son. He reports his son took his debt card. He refused assistance for the [facility]. They started disclosing again that she was scared and that everyone was after him. 292.9 (F15.99) Unspecified stimulant disorder; methamphetamine Homelessness Impression / Plan: Patient cleared from acute psychiatric services. Patient's presentation is erratic and not consistent with mental health diagnoses. He appears to perform as staff enter his room or when providers attempt to evaluate him. Patient has a long history of methamphetamine use and though reports a history of schizoaffective disorder, it is more likely his reported psychosis and mood difficulties are secondary to his historical drug use. Patient reports using bath salts in addition to methamphetamine. Patient is advised to return to his outpatient provider for re-evaluation and to provide them information regarding his drug use and to consider detox for his substance abuse problem. Patient was provided outpatient resources upon discharge. Dr. Taylor was consulted on the care and management of this patient; attending physician in agreement with recommendation and disposition.
[2018-03-26] MEDS ORDERED: OLANZAPINE 5 MG TABLET PO ONE (10:23)
--- NOTE | 2018-03-26 16:10 | ER Document Report ---
Doctor's Note Notes: 03/26/18 16:10 Patient was seen by psychiatry. He was cleared. He responded well to medication and recants any suicidal thoughts. The patient will be discharged home they have arranged follow-up.
[2018-03-26 16:19] VITALS: BP 106/69
--- NOTE | 2018-03-27 23:33 | EKG REPORT ---
SEVERITY:- NORMAL ECG - SINUS RHYTHM : Confirmed by: Juana Smith 27-Mar-2018 23:32:54
== END 2018-03-26 16:18 | disposition home or self-care (01) ==
LOC: ER 05:56
DX: R45.851 Suicidal ideations (principal); F15.20 Other stimulant dependence, uncomplicated; R44.0 Auditory hallucinations; Z79.899 Other long term (current) drug therapy; I10 Essential (primary) hypertension; J44.9 Chronic obstructive pulmonary disease, unspecified; F17.200 Nicotine dependence, unspecified, uncomplicated
CPT/HCPCS: 36415; 80053; 80307; 81001; 85025; 93005; 93010; 99285

== ENCOUNTER 2019-01-03 11:19 | Emergency (ER) | payer MEDICAID, OTHER ==
[2019-01-03] MEDS ORDERED: FENTANYL CITRATE INJ/PF 100 MCG/2 ML AMPUL IV ONE (11:57)
--- NOTE | 2019-01-03 11:59 | ER Document Report ---
ED Medical Screen (RME) - General Chief Complaint: Abdominal Pain Stated Complaint: ABDOMINAL PAIN Time Seen by Provider: 01/03/19 11:47 Primary Care Provider: SCAR DAVIES FNP-C [Primary Care Provider] - Follow up as needed Mode of Arrival: Ambulatory Information source: Patient Notes: 53-year-old male presents emergency department with complaints of pain to a left-sided inguinal hernia. Patient states that he has had a hernia for the last 5 years. He states that the hernia becomes painful when he coughs, blows his nose, lifts things. He states that he is typically able to reduce it but not today. He denies any dysuria, hematuria, increased urgency, increased frequency, nausea, vomiting, diarrhea, constipation. He states that he feels the hernia going down into his left testicle. I have greeted and performed a rapid initial assessment of this patient. A comprehensive ED assessment and evaluation of the patient, analysis of test results and completion of the medical decision making process will be conducted by additional ED providers. PHYSICAL EXAMINATION: GENERAL: Well-appearing, well-nourished and in no acute distress. HEAD: Atraumatic, normocephalic. EYES: Pupils equal round extraocular movements intact, conjunctiva are normal. ENT: Nares patent NECK: Normal range of motion LUNGS: No respiratory distress Musculoskeletal: Normal range of motion NEUROLOGICAL: Normal speech, normal gait. PSYCH: Normal mood, normal affect. SKIN: Warm, Dry, normal turgor, no rashes or lesions noted. TRAVEL OUTSIDE OF THE [place] IN LAST 30 DAYS: No - Related Data Allergies/Adverse Reactions: No Known Allergies Allergy (Verified 01/03/19 11:48) Past Medical History - Social History Chew tobacco use (# tins/day): No Frequency of alcohol use: None Drug Abuse: Marijuana - Past Medical History Cardiac Medical History: Reports: Hx Hypertension Pulmonary Medical History: Reports: Hx COPD Renal/ Medical History: Denies: Hx Peritoneal Dialysis Psychiatric Medical History: Reports: Hx Attention Deficit Hyperactivity Disorder, Hx Schizophrenia Past Surgical History: Reports: Hx Appendectomy - Immunizations Hx Diphtheria, Pertussis, Tetanus Vaccination: Yes Physical Exam - Vital signs Vitals: Temp Pulse Resp BP Pulse Ox 98.1 F 78 20 124/77 97 01/03/19 11:33 01/03/19 11:33 01/03/19 11:33 01/03/19 11:33 01/03/19 11:33 Course - Vital Signs Vital signs: Temp Pulse Resp BP Pulse Ox 98.1 F 78 20 124/77 97 01/03/19 11:33 01/03/19 11:33 01/03/19 11:33 01/03/19 11:33 01/03/19 11:33 Doctor's Discharge - Discharge Referrals: SCAR DAVIES, [facility] [Primary Care Provider] - Follow up as needed
--- NOTE | 2019-01-03 12:04 | ER Document Report ---
ED General - General Chief Complaint: Abdominal Pain Stated Complaint: ABDOMINAL PAIN Time Seen by Provider: 01/03/19 11:47 Primary Care Provider: SCAR DAVIES FNP-C [COMMUNITY BASED STAFF] - Follow up as needed Mode of Arrival: Ambulatory Notes: Patient is a 53-year-old male with history of inguinal hernia that presents to the emergency department for chief complaint of left inguinal hernia pain. Patient states that he is been dealing with a left inguinal hernia for at least the last 6 months if not longer, where he states has been coming easier for her to come out, he has been able to reduce it, it took longer most recently, readily down, and slowly work it back and he felt pain into his testicles at that time as well. He was able to reduce it however. He states that if he sneezes or coughs, he feels it pop out. He has not seen a surgeon about this yet although he has been intending to. He denies noting any fevers, chills, nausea, vomiting, dysuria, hematuria. Past Medical History: Insomnia Past Surgical History: Appendectomy Social History: Admits to smoking cigarettes daily, denies alcohol use, denies current illicit drug use. Family History: Reviewed and noncontributory for presenting illness Allergies: Reviewed, see documented allergy list. REVIEW OF SYSTEMS: Other than noted above, the 12 point review of systems was reviewed with the patient and were negative, all pertinent findings are included in the HPI. PHYSICAL EXAMINATION: Vital signs reviewed, nursing noted reviewed. GENERAL: Well-appearing, well-nourished and in no acute distress. HEAD: Atraumatic, normocephalic. EYES: Eyes appear normal, extraocular movements intact, sclera anicteric, conjunctiva are normal. ENT: nares patent, oropharynx clear without exudates. Moist mucous membranes. NECK: Normal range of motion, supple without lymphadenopathy LUNGS: Breath sounds clear to auscultation bilaterally and equal. No wheezes rales or rhonchi. HEART: Regular rate and rhythm without murmurs ABDOMEN: Soft, nontender, normoactive bowel sounds. No rebound, guarding, or rigidity. No masses appreciated. With Valsalva, there is a palpable bulge, with cough along the left inguinal line, reduced at this time with the patient in bed. Male genital: Testicles of normal vertical lie, nontender to palpate, no bowel palpated in the scrotal sac, no erythema or edema to the scrotum. Penis appears normal, no blood at the meatus, no discharge. EXTREMITIES: Nontender, good range of motion, no pitting or edema. NEUROLOGICAL: No focal neurological deficits. Moves all extremities spontaneously Motor and sensory grossly intact on exam. PSYCH: Normal mood, normal affect. SKIN: Warm, Dry, normal turgor, no rashes or lesions noted on exposed skin TRAVEL OUTSIDE OF THE [place] IN LAST 30 DAYS: No - Related Data Allergies/Adverse Reactions: No Known Allergies Allergy (Verified 01/03/19 11:48) Past Medical History - General Information source: Patient - Social History Smoking Status: Current Every Day Smoker Chew tobacco use (# tins/day): No Frequency of alcohol use: None Drug Abuse: Marijuana Family History: Reviewed & Not Pertinent Patient has suicidal ideation: No Patient has homicidal ideation: No - Past Medical History Cardiac Medical History: Reports: Hx Hypertension Pulmonary Medical History: Reports: Hx COPD Renal/ Medical History: Denies: Hx Peritoneal Dialysis Psychiatric Medical History: Reports: Hx Attention Deficit Hyperactivity Disorder, Hx Schizophrenia Past Surgical History: Reports: Hx Appendectomy - Immunizations Hx Diphtheria, Pertussis, Tetanus Vaccination: Yes Physical Exam - Vital signs Vitals: Temp Pulse Resp BP Pulse Ox 98.1 F 78 20 124/77 97 01/03/19 11:33 01/03/19 11:33 01/03/19 11:33 01/03/19 11:33 01/03/19 11:33 Course - Re-evaluation Re-evalutation: Patient seen and examined vital signs reviewed. Laboratory data and imaging were ordered as appropriate for the patient's presenting symptoms and complaint, with consideration of any critical or life threatening conditions that may be associated with their obtained history and exam as noted above. Patient was treated with fentanyl for pain up front from the triage provider Results were reviewed when available and demonstrated essentially unremarkable blood work, only mild anemia, no leukocytosis, lactic acid normal, CT imaging was ordered by triage provider, and demonstrated herniation of the rectosigmoid colon into the left inguinal region. The patient was re-evaluated and was stable, his hernia was reducible, at this time I do not feel that he needs to be admitted to the hospital, but does need more urgent surgical consult, as an outpatient to have his inguinal hernia corrected, advised that he needs to make a phone call to set up an appointment with the surgical clinic Evaluation was most consistent with left inguinal hernia, advised outpatient follow-up, as patient will need surgical repair of the hernia. Results were discussed with the patient at this point, after careful considerat ion I feel that that patient can be discharged from the emergency department, the patient was educated treatments and reasons to return to the emergency department based on their presumed diagnosis as noted above, they were advised to followup with a primary care physician in 2-3 days. Patient was agreeable to plan of care. *Note is created using voice recognition software and may contain spelling, syntax or grammatical errors. Laboratory 01/03/19 01/03/19 01/03/19 12:25 12:25 12:25 WBC 8.9 RBC 4.21 L Hgb 13.1 L Hct 38.4 MCV 91 MCH 31.2 MCHC 34.1 RDW 13.2 Plt Count 337 Seg Neutrophils % 67.1 Lymphocytes % 23.7 Monocytes % 7.3 Eosinophils % 1.3 Basophils % 0.6 Absolute Neutrophils 6.0 Absolute Lymphocytes 2.1 Absolute Monocytes 0.7 Absolute Eosinophils 0.1 Absolute Basophils 0.1 Sodium 139.8 Potassium 4.7 Chloride 105 Carbon Dioxide 26 Anion Gap 9 BUN 15 Creatinine 0.87 Est GFR ( Amer) > 60 Est GFR (Non-Af Amer) > 60 Glucose 97 Lactic Acid 0.7 Calcium 9.1 Total Bilirubin 0.5 Direct Bilirubin 0.2 Neonat Total Bilirubin Not Reportable Neonat Direct Bilirubin Not Reportable Neonat Indirect Bili Not Reportable AST 21 ALT 16 L Alkaline Phosphatase 71 Total Protein 6.6 Albumin 4.1 Urine Color Urine Appearance Urine pH Ur Specific [place] Urine Protein Urine Glucose (UA) Urine Ketones Urine Blood Urine Nitrite Urine Bilirubin Urine Urobilinogen Ur Leukocyte Esterase Urine WBC (Auto) Urine Mucus (Auto) Urine Ascorbic Acid 01/03/19 14:20 WBC RBC Hgb Hct MCV MCH MCHC RDW Plt Count Seg Neutrophils % Lymphocytes % Monocytes % Eosinophils % Basophils % Absolute Neutrophils Absolute Lymphocytes Absolute Monocytes Absolute Eosinophils Absolute Basophils Sodium Potassium Chloride Carbon Dioxide Anion Gap BUN Creatinine Est GFR ( Amer) Est GFR (Non-Af Amer) Glucose Lactic Acid Calcium Total Bilirubin Direct Bilirubin Neonat Total Bilirubin Neonat Direct Bilirubin Neonat Indirect Bili AST ALT Alkaline Phosphatase Total Protein Albumin Urine Color STRAW Urine Appearance CLEAR Urine pH 7.0 Ur Specific [place] 1.009 Urine Protein NEGATIVE Urine Glucose (UA) NEGATIVE Urine Ketones NEGATIVE Urine Blood NEGATIVE Urine Nitrite NEGATIVE Urine Bilirubin NEGATIVE Urine Urobilinogen NEGATIVE Ur Leukocyte Esterase NEGATIVE Urine WBC (Auto) 1 Urine Mucus (Auto) RARE Urine Ascorbic Acid NEGATIVE Abdomen/Pelvis CT 01/03/19 11:53 IMPRESSION: Findings consistent with transient herniation of rectosigmoid colon into left inguinal hernia. Small bilateral nonobstructive renal calculi. 01/03/19 15:12 - Vital Signs Vital signs: Temp Pulse Resp BP Pulse Ox 98.3 F 58 L 16 109/70 99 01/03/19 14:32 01/03/19 14:32 01/03/19 14:32 01/03/19 14:32 01/03/19 14:32 - Laboratory Result Diagrams: 01/03/19 12:25 01/03/19 12:25 Laboratory results interpreted by me: 01/03/19 01/03/19 12:25 12:25 RBC 4.21 L Hgb 13.1 L ALT 16 L Discharge - Discharge Clinical Impression: Inguinal hernia Qualifiers: Obstruction and gangrene presence: without obstruction or gangrene Laterality: unilateral Recurrence: not specified as recurrent Qualified Code(s): K40.90 - Unilateral inguinal hernia, without obstruction or gangrene, not specified as recurrent Condition: Stable Disposition: HOME, SELF-CARE Instructions: Hernia ([facility]) Additional Instructions: Please follow-up with the surgeon, call for an appointment today, you will need this surgically repaired, you should call on Saturday to schedule appointment as soon as possible, if in the meantime, if this seems to get worse or you are having worsening symptoms, you can always return to the emergency department to be reevaluated. Referrals: SCAR DAVIES FNP-C [COMMUNITY BASED STAFF] - Follow up in 3-5 days ADY GUZMAN MD [[facility]] - Follow up in 3-5 days (call on Saturday to schedule appointment. )
[2019-01-03 12:58] LABS: ABSOLUTE BASOPHILS # (AUTO) 0.1 10^3/uL (0.0-0.2); ABSOLUTE EOSINOPHILS # (AUTO) 0.1 10^3/uL (0.0-0.6); ABSOLUTE LYMPHOCYTES (AUTO) 2.1 10^3/uL (0.5-4.7); ABSOLUTE MONOCYTES (AUTO) 0.7 10^3/uL (0.1-1.4); BASOPHILS % (AUTO) 0.6 % (0-2); EOSINOPHILS % (AUTO) 1.3 % (0-6); HEMATOCRIT 38.4 % (37.9-51.0); HEMOGLOBIN 13.1 g/dL (13.5-17.0); LYMPHOCYTES % (AUTO) 23.7 % (13-45); MEAN CORPUSCULAR HEMOGLOBIN 31.2 pg (27.0-33.4); MEAN CORPUSCULAR HGB CONC 34.1 g/dL (32.0-36.0); MEAN CORPUSCULAR VOLUME 91 fl (80-97); MONOCYTES % (AUTO) 7.3 % (3-13); PLATELET COUNT 337 10^3/uL (150-450); RED BLOOD COUNT 4.21 10^6/uL (4.35-5.55); RED CELL DISTRIBUTION WIDTH 13.2 % (11.5-14.0); SEGMENTED NEUTROPHILS % (AUTO) 67.1 % (42-78); TOTAL CELLS COUNTED % (AUTO) 100 %; WHITE BLOOD COUNT 8.9 10^3/uL (4.0-10.5)
[2019-01-03 13:22] LABS: ALANINE AMINOTRANSFERASE 16 U/L (21-72); ALBUMIN 4.1 g/dL (3.5-5.0); ALKALINE PHOSPHATASE 71 U/L (38-126); ANION GAP 9 (5-19); ASPARTATE AMINO TRANSFERASE 21 U/L (17-59); BILIRUBIN,DIRECT 0.2 mg/dL (0.0-0.4); BILIRUBIN,TOTAL 0.5 mg/dL (0.2-1.3); BLOOD UREA NITROGEN 15 mg/dL (7-20); CALCIUM 9.1 mg/dL (8.4-10.2); CARBON DIOXIDE 26 mmol/L (22-30); CHLORIDE 105 mmol/L (98-107); GLUCOSE 97 mg/dL (75-110); POTASSIUM 4.7 mmol/L (3.6-5.0); SODIUM 139.8 mmol/L (137-145); TOTAL PROTEIN 6.6 g/dL (6.3-8.2)
[2019-01-03 14:48] LABS: APPEARANCE,URINE CLEAR; BILIRUBIN,URINE NEGATIVE (NEGATIVE); COLOR,URINE STRAW; GLUCOSE, URINE NEGATIVE (NEGATIVE); KETONES,URINE NEGATIVE (NEGATIVE); LEUKOCYTE ESTERASE,URINE NEGATIVE (NEGATIVE); NITRITE,URINE NEGATIVE (NEGATIVE); PROTEIN,URINE NEGATIVE (NEGATIVE); URINE SPECIFIC GRAVITY 1.009; UROBILINOGEN,URINE NEGATIVE mg/dL (<2.0)
--- NOTE | 2019-01-03 15:03 | RADIOLOGY REPORT (SQ) ---
EXAM DESCRIPTION: CT ABD/PELVIS WITH IV ONLY COMPLETED DATE/TIME: 01/03/2019 2:18 pm REASON FOR STUDY: L inguinal hernia COMPARISON: None. TECHNIQUE: CT scan of the abdomen and pelvis performed using helical scanning technique with dynamic intravenous contrast injection. No oral contrast. Images reviewed with lung, soft tissue, and bone windows. Reconstructed coronal and sagittal MPR images reviewed. Delayed images for evaluation of the urinary system also acquired. All images stored on PACS. All CT scanners at this facility use dose modulation, iterative reconstruction, and/or weight based d osing when appropriate to reduce radiation dose to as low as reasonably achievable (ALARA). [facility]: Dose Right [facility]: CareDose [facility]: Dose Right [facility]: Teradose 4D [facility]: [employer] CONTRAST TYPE AND DOSE: contrast/concentration: Isovue 350.00 mg/ml; Total Contrast Delivered: 95.0 ml; Total Saline Delivered: 72.0 ml RENAL FUNCTION: Creatinine: 0.87. RADIATION DOSE: CT Rad equipment meets quality standard of care and radiation dose reduction techniq ues were employed. CTDIvol: 7.3 - 10.2 mGy. DLP: 964 mGy-cm.. LIMITATIONS: None. FINDINGS: LOWER CHEST: No abnormality. LIVER: No abnormality. SPLEEN: No abnormality. . PANCREAS: No abnormality. GALLBLADDER: No abnormality. . ADRENAL GLANDS: No abnormality. RIGHT KIDNEY AND URETER: Nonobstructing calculus lower pole right kidney. LEFT KIDNEY AND URETER: Cortical cyst upper pole left kidney. Nonobstructing calculi left kidney. AORTA AND VESSELS atherosclerotic change abdominal aorta. Atherosclerotic change iliac and femoral v essels. No dissection. Renal arteries, SMA, celiac without stenosis. RETROPERITONEUM: No retroperitoneal adenopathy, hemorrhage or masses. BOWEL AND PERITONEAL CAVITY: Constipation. APPENDIX: Status post appendectomy by history. PELVIS: Urinary bladder: Thickening of the bladder wall most likely due to decompressed state. Pros palafox and seminal vesicles: No abnormality. ABDOMINAL WALL: Right inguinal hernia containing fat. Left inguinal hernia demonstrating transient h erniation of proximal rectosigmoid colon into the hernia on immediate images not seen on delayed imag es. BONES: Multilevel lumbar spondylosis. Degenerative disc disease at L2-3. IMPRESSION: Findings consistent with transient herniation of rectosigmoid colon into left inguinal h ernia. Small bilateral nonobstructive renal calculi. TECHNICAL DOCUMENTATION: JOB ID: [id number] [facility] [id number] Quality ID # [id number]: Final reports with documentation of one or more dose reduction techniques (e.g., Au tomated exposure control, adjustment of the mA and/or kV according to patient size, use of iterative reconstruction technique) 2010 [employer]- All Rights Reserved Reading location - IP/workstation name: [email or web address]
[2019-01-03 15:34] VITALS: BP 116/80
== END 2019-01-03 15:34 | disposition home or self-care (01) ==
LOC: ER 11:19
DX: K40.90 Unilateral inguinal hernia, without obstruction or gangrene, not specified as recurrent (principal); R10.32 Left lower quadrant pain; F17.210 Nicotine dependence, cigarettes, uncomplicated; I10 Essential (primary) hypertension; J44.9 Chronic obstructive pulmonary disease, unspecified
CPT/HCPCS: 99284; 96374; 36415; 83605; 85025; 80053; 81001; 74177; J3010

== ENCOUNTER 2019-02-13 07:59 | Day surgery (SDC) | payer MEDICAID ==
[~2019-02-13 07:59] MED LIST: CEFAZOLIN 2 GM/D5W RTU 2 GM/50 ML RTUPB IV ONE; CEFAZOLIN 2 GM/D5W RTU 2 GM/50 ML RTUPB IV PRN; IBUPROFEN 800 MG in NORMAL SALINE 250 ML IV PRN; LACTATED RINGERS 1000 ML IV PRN; LIDOCAINE 0.5% INJ-PF (5 MG/ML) 50 ML SDV SUBCUT PRN; RINGERS SOLUTION,LACTATED 1,000 ML IV PRN
[2019-02-13] MEDS ORDERED: ALBUTEROL SULFATE 0.083% NEB 2.5 MG/3 ML AMPUL NEB ONE (08:35)
--- NOTE | 2019-02-13 08:41 | RADIOLOGY REPORT (SQ) ---
EXAM DESCRIPTION: CHEST SINGLE VIEW COMPLETED DATE/TIME: 02/13/2019 8:36 am REASON FOR STUDY: preop COMPARISON: 10/07/2016 EXAM PARAMETERS: NUMBER OF VIEWS: One view. TECHNIQUE: Single frontal radiographic view of the chest acquired. RADIATION DOSE: NA LIMITATIONS: None. FINDINGS: LUNGS AND PLEURA: No opacities, masses or pneumothorax. No pleural effusion. MEDIASTINUM AND HILAR STRUCTURES: No masses. Contour normal. HEART AND VASCULAR STRUCTURES: Heart normal in size. Normal vasculature. BONES: No acute findings. HARDWARE: None in the chest. OTHER: No other significant finding. IMPRESSION: NO ACUTE RADIOGRAPHIC FINDING IN THE CHEST. TECHNICAL DOCUMENTATION: JOB ID: [id number] [employer]- All Rights Reserved Reading location - IP/workstation name: [email or web address]
[2019-02-13 09:03] LABS: ANION GAP 6 (5-19); BLOOD UREA NITROGEN 15 mg/dL (7-20); CALCIUM 9.1 mg/dL (8.4-10.2); CARBON DIOXIDE 28 mmol/L (22-30); CHLORIDE 105 mmol/L (98-107); GLUCOSE 95 mg/dL (75-110); POTASSIUM 4.3 mmol/L (3.6-5.0); SODIUM 138.9 mmol/L (137-145)
[2019-02-13] MEDS ORDERED: GLYCOPYRROLATE 1 MG/5 ML SYRINGE ONE (10:16)
[2019-02-13] MEDS ORDERED: SUCCINYLCHOLINE CHLORIDE INJ 200 MG/10 ML VIAL ONE (10:16)
[2019-02-13] MEDS ORDERED: ROCURONIUM BROMIDE INJ 50 MG/5 ML VIAL IV ONE (10:16)
[2019-02-13] MEDS ORDERED: NEOSTIGMINE METHYLSULFATE 10 MG/10 ML VIAL ONE (10:16)
[2019-02-13] MEDS ORDERED: KETOROLAC TROMETHAMINE 60 MG/2 ML SDV ONE (10:16)
[2019-02-13] MEDS ORDERED: EPHEDRINE SULFATE INJ 50 MG/1 ML AMPULE ONE (10:33)
[2019-02-13] MEDS ORDERED: ONDANSETRON HCL INJ/PF 4 MG/2 ML SDV ONE (10:33)
[2019-02-13] MEDS ORDERED: HYDROMORPHONE HCL INJ/PF 2 MG/ML AMPULE ONE (10:33)
[2019-02-13] MEDS ORDERED: PROMETHAZINE HCL INJ 25 MG/1 ML VIAL ONE (10:33)
[2019-02-13] MEDS ORDERED: FENTANYL CITRATE INJ/PF 100 MCG/2 ML AMPUL ONE (10:33)
[2019-02-13] MEDS ORDERED: DEXAMETHASONE SOD PHOSPHATE INJ 4 MG/1 ML VIAL ONE (10:33)
[2019-02-13] MEDS ORDERED: MIDAZOLAM 2 MG/2 ML INJ ONE (10:33)
[2019-02-13] MEDS ORDERED: PROPOFOL INJ 200 MG/20 ML VIAL IV ONE (10:34)
[2019-02-13] MEDS ORDERED: ACETAMINOPHEN 1,000 MG/100 ML RTUPB IV ONE (10:34)
[2019-02-13] MEDS ORDERED: BUPIVACAINE HCL 0.25 % INJ/PF (2.5 MG/1 ML) 30 ML VIAL ONE (10:34)
[2019-02-13] MEDS ORDERED: DIPHENHYDRAMINE HCL 50 MG/ML VIAL IV PRN (11:05)
[2019-02-13] MEDS ORDERED: PROMETHAZINE HCL INJ 25 MG/1 ML VIAL IV PRN ×2 (11:05)
[2019-02-13] MEDS ORDERED: MORPHINE SULFATE 10 MG/ML INJ IV PRN (11:05)
[2019-02-13] MEDS ORDERED: MEPERIDINE HCL/PF INJ 25 MG/1 ML DISP.SYRIN IV PRN (11:05)
[2019-02-13] MEDS ORDERED: FENTANYL CITRATE INJ/PF 100 MCG/2 ML AMPUL IV PRN ×3 (11:05)
--- NOTE | 2019-02-13 13:16 | Discharge Summary ---
Discharge Summary (SDC) - Discharge Final Diagnosis: Bilateral indirect inguinal hernias. Date of Surgery: 02/13/19 Discharge Date: 02/13/19 Condition: Stable Treatment or Instructions: Discharge home. Diet as tolerated. Activity: No lifting greater than 10 pounds x 6 weeks. Follow-up with me in 7-10 days. [place] 10/325 mg p.o. every 6 hours as needed for pain. Okay to shower in 48 hours. No tub baths or swimming pools times 2 weeks. Discharge Diet: As Tolerated Respiratory Treatments at Home: Deep Breathing/Coughing, Incentive Spirometer Discharge Activity: No Lifting Over 10 Pounds Home Care Assistance: None Needed Report the Following to Your Physician Immediately: Shortness of Breath, Nausea, Vomiting, Fever over 101 Degrees, Unusual Bleeding, Redness
[2019-02-13] MEDS: FENTANYL CITRATE INJ/PF 100 MCG/2 ML AMPUL ONE ×2 (13:20→13:30)
--- NOTE | 2019-02-13 13:25 | Operative Report ---
Nonrecallable Operative Report DATE OF SURGERY: 02/13/19 PREOPERATIVE DIAGNOSIS: Bilateral inguinal hernias POSTOPERATIVE DIAGNOSIS: Bilateral indirect inguinal hernias. OPERATION: Robot-assisted laparoscopic bilateral inguinal hernia repair with mesh. SURGEON: SURJIT LIGHT 1ST [employer] TECHNICIAN: CAROLE GIRON ANESTHESIA: GA TISSUE REMOVED OR ALTERED: None COMPLICATIONS: None apparent ESTIMATED BLOOD LOSS: Minimal PROCEDURE: Drains/implants: Large left and right 3 DMax inguinal hernia mesh. Procedure in detail: After informed consent was obtained, the patient was brought to the operating room and laid in the supine position. The area of the abdomen was prepped and draped in a normal sterile fashion. A supraumbilical incision was created with a 15 blade scalpel. The incision was deepened using blunt dissection. The linea alba fascia was incised sharply, the abdomen was entered sharply. The balloon trocar was inserted, and pneumoperitoneum was achieved. 2 8 mm right and left lateral abdominal wall robotic trochars were then placed under direct laparoscopic visualization. The robot was then brought over the patient and docked appropriately. I then assumed my position at the surgeon's console. Attention was turned to the right groin. An indirect inguinal hernia defect was easily identified. An incision was created in the peritoneum 2-3 cm superior to hernia defect. Dissection was carried out of the preperitoneal space using sharp dissection, blunt dissection, and electrocautery. The inguinal hernia defect was easily identified. The hernia sac was freed from the cord structures, taking great care not to injure the cord structures. Once the space was completely opened, a large right-sided 3 DMax inguinal hernia mesh was placed into the preperitoneal space. It was sutured medially and superiorly using 2-0 Vicryl suture. The peritoneum was then closed using 2-0 V lock suture in simple running fashion. Once this was completed, attention was turned to the left side. The left side had a much larger hernia evident. It was indirect as well. The peritoneum was scored 2-3 cm superior to the inguinal hernia defect. A preperitoneal dissection was undertaken. This was done using sharp dissection, blunt dissection, and electrocautery. The hernia sac was very large, however it was carefully away from the cord structures. Great care was taken not to injure the cord structures. Once the hernia sac was freed, it was everted. A large left-sided 3 DMax inguinal hernia mesh was placed into the preperitoneal space. It was sutured to the abdominal wall medially and superiorly. Once this was completed, the mesh was found to cover the defect adequately. The peritoneum was closed using 2-0 V lock suture in simple running fashion. The large hernia sac was incorporated into the closure. Once this was completed, the robot was undocked and I scrubbed back into the case. The 8 mm trocar sites were closed using 0 Vicryl suture in simple interrupted fashion using the Endo Close device. The balloon trocar was removed, and pneumoperitoneum was relieved. The supraumbilical fascia was closed using 0 Vicryl suture in [id number] fashion. The overlying skin was closed using 4-0 Vicryl Rapide suture in subcuticular fashion. Dressings were fashioned, and the procedure was concluded. All sponge, instrument, and needle counts were correct x2. Condition: Stable. Carole Giron PA-C was scrubbed and present the entirety of the procedure. She assisted with all portions of the procedure including placement of the trochars, docking of the robot, exchanging the robotic instruments, closure of the fascia, and closure of the skin.
[2019-02-13] MEDS ORDERED: HYDROCODONE/ACETAMINOPHEN 10-325 MG TABLET PO PRN (13:50)
[2019-02-13 15:47] VITALS: BP 133/82
--- NOTE | 2019-02-13 23:02 | EKG REPORT ---
SEVERITY:- NORMAL ECG - SINUS RHYTHM : Confirmed by: Juana Smith 13-Feb-2019 23:02:01
== END 2019-02-13 15:40 | disposition home or self-care (01) ==
LOC: OROUT 07:59
PROVIDERS: ATTEND Surgery
DX: K40.20 Bilateral inguinal hernia, without obstruction or gangrene, not specified as recurrent (principal); I10 Essential (primary) hypertension; F17.210 Nicotine dependence, cigarettes, uncomplicated; Z79.899 Other long term (current) drug therapy
CPT/HCPCS: 49650; S2900; 36415; 71045; 80048; 840; 93005; 93010; C1781; J0131; J0330; J0690; J1100; J1170; J1741; J1885; J2250; J2405; J2550; J2704; J3010; J3490; J7050

== ENCOUNTER 2019-02-14 12:58 | Emergency (ER) | payer MEDICAID ==
--- NOTE | 2019-02-14 13:33 | ER Document Report ---
ED Medical Screen (RME) - General Chief Complaint: Abdominal Pain Stated Complaint: ABDOMINAL PAIN Time Seen by Provider: 02/14/19 13:30 Mode of Arrival: Ambulatory Information source: Patient TRAVEL OUTSIDE OF THE [place] IN LAST 30 DAYS: No - HPI Patient complains to provider of: abd pain Onset: This morning - pt is s/p LIH repair yesterday with increasing pain today - Related Data Allergies/Adverse Reactions: No Known Allergies Allergy (Verified 02/14/19 12:58) Past Medical History - Social History Chew tobacco use (# tins/day): No Frequency of alcohol use: None Drug Abuse: Marijuana - Past Medical History Cardiac Medical History: Reports: Hx Hypertension Denies: Hx Coronary Artery Disease, Hx Heart Attack Pulmonary Medical History: Reports: Hx COPD Denies: Hx Asthma, Hx Bronchitis, Hx Pneumonia Neurological Medical History: Denies: Hx Cerebrovascular Accident, Hx Seizures Renal/ Medical History: Denies: Hx Peritoneal Dialysis Musculoskeltal Medical History: Denies Hx Arthritis Psychiatric Medical History: Reports: Hx Attention Deficit Hyperactivity Disorder, Hx Schizophrenia Past Surgical History: Reports: Hx Appendectomy - Immunizations Hx Diphtheria, Pertussis, Tetanus Vaccination: Yes Physical Exam - Vital signs Vitals: Temp Pulse Resp BP Pulse Ox 97.9 F 109 H 14 152/78 H 96 02/14/19 13:08 02/14/19 13:08 02/14/19 13:08 02/14/19 13:08 02/14/19 13:08 Course - Vital Signs Vital signs: Temp Pulse Resp BP Pulse Ox 97.9 F 109 H 14 152/78 H 96 02/14/19 13:08 02/14/19 13:08 02/14/19 13:08 02/14/19 13:08 02/14/19 13:08
--- NOTE | 2019-02-14 15:34 | RADIOLOGY REPORT (SQ) ---
EXAM DESCRIPTION: CT ABD/PELVIS NO ORAL OR IV COMPLETED DATE/TIME: 02/14/2019 3:08 pm REASON FOR STUDY: abd pain COMPARISON: 01/03/2019 TECHNIQUE: CT scan of the abdomen and pelvis performed without intravenous or oral contrast. Images reviewed with lung, soft tissue, and bone windows. Reconstructed coronal and sagittal MPR images revi ewed. All images stored on PACS. All CT scanners at this facility use dose modulation, iterative reconstruction, and/or weight based d osing when appropriate to reduce radiation dose to as low as reasonably achievable (ALARA). [facility]: Dose Right [facility]: CareDose [facility]: Dose Right [facility]: Teradose 4D [facility]: [employer] RADIATION DOSE: CT Rad equipment meets quality standard of care and radiation dose reduction techniq ues were employed. CTDIvol: 6.6 - 8.8 mGy. DLP: 604 mGy-cm.mGy. LIMITATIONS: None. FINDINGS: LOWER CHEST: No significant findings. No nodules or infiltrates. NON-CONTRASTED LIVER, SPLEEN, ADRENALS: Evaluation limited by lack of IV contrast. No identified sign ificant masses. PANCREAS: No masses. No peripancreatic inflammatory changes. GALLBLADDER: No calcified stones. No inflammatory changes to suggest cholecystitis. RIGHT KIDNEY AND URETER: No cysts identified. No solid masses. Tiny calcified stones. No hydronephro sis or hydroureter. LEFT KIDNEY AND URETER: Similar upper pole identified. No solid masses. Tiny calcified stones. No hy dronephrosis or hydroureter. AORTA AND RETROPERITONEUM: No aneurysm. No retroperitoneal masses or adenopathy. BOWEL AND PERITONEAL CAVITY: Free intraperitoneal gas. No bowel dilatation- obstruction. APPENDIX: Normal. PELVIS, BLADDER, AND ABDOMINAL WALL:Expected postsurgical changes in the peritoneal space, body wall, inguinal canals and deep pelvis consistent with recent bilateral inguinal hernia repair, left greate r than right. Unremarkable bladder. BONES: No acute findings. OTHER: No other significant finding. IMPRESSION: Expected postsurgical changes in the peritoneal space, body wall, inguinal canals and de ep pelvis consistent with recent bilateral inguinal hernia repair. TECHNICAL DOCUMENTATION: JOB ID: [id number] Quality ID # [id number]: Final reports with documentation of one or more dose reduction techniques (e.g., Au tomated exposure control, adjustment of the mA and/or kV according to patient size, use of iterative reconstruction technique) 2010 [employer]- All Rights Reserved Reading location - IP/workstation name: [email or web address]
--- NOTE | 2019-02-14 15:36 | ER Document Report ---
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 He states that he is always doing stuff with his hands which was when he noticed the swelling. 02/14/19 19:00 Dr. Osorio did call me back and updated him on the case and is in agreement with Dr. Carrillo's recommendations. - Vital Signs Vital signs: Temp Pulse Resp BP Pulse Ox 98.0 F 109 H 16 133/86 H 96 02/14/19 16:29 02/14/19 13:08 02/14/19 16:29 02/14/19 16:29 02/14/19 13:08 Original Note: ED General - General Chief Complaint: Abdominal Pain Stated Complaint: ABDOMINAL PAIN Time Seen by Provider: 02/14/19 13:30 Mode of Arrival: Ambulatory TRAVEL OUTSIDE OF THE [place] IN LAST 30 DAYS: No - HPI Notes: Patient is a 53-year-old male with no significant past medical history aside from having bilateral inguinal hernia repair performed yesterday by Dr. Osorio who presents to the emergency department complaining of increased swelling primarily to the scrotal area with pain to his lower abdomen. Patient states that he came here just to get it looked at to see if this is normal after surge ry. Patient states that he is still eating and drinking, but does have a decreased p.o. intake. He does have discomfort when he is lying supine and moving his trunk. Denies drug allergies. No other concerns or complaints at this time. Denies any headache, fever, neck pain, URI, sore throat, chest pain, palpitations, syncope, cough, shortness of breath, wheeze, dyspnea, nausea/vomiting/diarrhea, urinary retention, dysuria, hematuria, loss of control of bowel or bladder, numbness/tingling, saddle anesthesia, muscle paralysis/weakness, or rash. - Related Data Allergies/Adverse Reactions: No Known Allergies Allergy (Verified 02/14/19 12:58) Past Medical History - General Information source: Patient - Social History Smoking Status: Current Every Day Smoker Chew tobacco use (# tins/day): No Frequency of alcohol use: None Drug Abuse: Marijuana Family History: Reviewed & Not Pertinent Patient has suicidal ideation: No Patient has homicidal ideation: No - Past Medical History Cardiac Medical History: Reports: Hx Hypertension Denies: Hx Coronary Artery Disease, Hx Heart Attack Pulmonary Medical History: Reports: Hx COPD Denies: Hx Asthma, Hx Bronchitis, Hx Pneumonia Neurological Medical History: Denies: Hx Cerebrovascular Accident, Hx Seizures Renal/ Medical History: Denies: Hx Peritoneal Dialysis Musculoskeletal Medical History: Denies Hx Arthritis Psychiatric Medical History: Reports: Hx Attention Deficit Hyperactivity Disorder, Hx Schizophrenia Past Surgical History: Reports: Hx Appendectomy - Immunizations Hx Diphtheria, Pertussis, Tetanus Vaccination: Yes Review of Systems - Review of Systems -: Yes All other systems reviewed and negative Physical Exam - Vital signs Vitals: Temp Pulse Resp BP Pulse Ox 97.9 F 109 H 14 152/78 H 96 02/14/19 13:08 02/14/19 13:08 02/14/19 13:08 02/14/19 13:08 02/14/19 13:08 - Notes Notes: PHYSICAL EXAMINATION: GENERAL: Well-appearing, well-nourished and in no acute distress. LUNGS: Breath sounds clear to auscultation bilaterally and equal. No wheezes rales or rhonchi. HEART: Regular rate and rhythm without murmurs, rubs, gallops. ABDOMEN: Soft, nondistended abdomen. No guarding, no rebound. Normal bowel sounds present. No CVA tenderness bilaterally. Laparoscopic incisions noted without erythema or purulence. He does have mild swelling in the inguinal area with mild tenderness. No significant erythema. : No obvious lesions, rash, or ulcerations. No urethral discharge. No testicular, scrotal, or penile tenderness. There scrotum does appear to be swollen otherwise w/o erythema or warmth. No necrosis noted. No transverse lie. Cremasteric reflexes intact bilaterally. Musculoskeletal: FROM to passive/active. Strength 5+/5. Extremities: No cyanosis, clubbing, or edema b/l. Peripheral pulses 2+. Capillary refill less than 3 seconds. NEUROLOGICAL: Normal speech, normal gait. PSYCH: Normal mood, normal affect. SKIN: Warm, Dry, normal turgor, no rashes or lesions noted. Course - Re-evaluation Re-evalutation: 02/14/19 15:[address] Osorio regarding pt's hernia repair. Waiting for a call back. Pt is declining any lab work and states that he will go somewhere else if we need labs. CT scan with IV contrast performed, ordered at triage, shows normal post surgical changes. 02/14/19 16:20 2 calls were placed over the 50mins to Dr. Osorio with no response so I called the surgeon on-call, Dr. Carrillo and reviewed case with him. He states that the scrotal swelling and pain are normal s/p procedure and recommends scrotal support wear (i.e. Jock strap etc). Patient is an afebrile, well-hydrated, 53-year-old male who presents to the emergency department for postop pain. Vitals are acceptable without significant tachycardia, tachypnea, or hypoxia. PE is otherwise unremarkable. He does not have any specific testicular pain, and is mostly concerned with the swelling. Patient is nontoxic-appearing and is able to tolerate p.o. without difficulty. Patient is still declining any blood work or any further imaging including an ultrasound. I do have a low suspicion for torsion at this time based on his H&P, but reviewed that this is part of the differential. Patient has been trying to leave AMA prior to my consult. CT scan of the abdomen and pelvis was unremarkable as noted above. Low suspicion/risk for acute appendicitis, bowel obstruction, acute cholecystitis, perforated diverticulitis, incarcerated hernia, pancreatitis, perforated ulcer, peritonitis, sepsis, testicular torsion, or other systemic emergent condition at this time. Patient is aware that his condition can change from initial presentation and he needs to monitor symptoms closely and seek medical attention if any acute changes. Conservative measures otherwise for symptoms. Recheck with PCM in 2-3 days. Follow-up with your surgeon as reviewed. Return to the ED with any worsening/concerning symptoms otherwise as reviewed in discharge. Patient is in agreement. - Vital Signs Vital signs: Temp Pulse Resp BP Pulse Ox 97.9 F 109 H 14 152/78 H 96 02/14/19 13:08 02/14/19 13:08 02/14/19 13:08 02/14/19 13:08 02/14/19 13:08 Discharge - Discharge Clinical Impression: Post-op pain Condition: Stable Disposition: HOME, SELF-CARE Additional Instructions: I was able to review with 1 of our general surgeons, Dr. Carrillo, and the swelling and symptoms that you are experiencing are normal after hernia repair in the inguinal region. Your CT scan was unremarkable. You have elected to decline any blood work today. He does recommend that you wear supportive garments such as a jockstrap. Tylenol/Motrin as needed. Elevation as able. Recheck with your general surgeon next week. Return to the ED with any worsening symptoms and/or development of fever, headache, changes in behavior/mentation/vision/speech, chest pain, palpitations, syncope, shortness of breath, trouble breathing, abdominal pain, n/v/d, blood in stool/urine, loss of control of bowel/bladder, urinary retention, muscle weakness/paralysis, saddle anesthesia, numbness/tingling, or other worsening symptoms that are concerning to you. Forms: Elevated Blood Pressure, Smoking Cessation Education Referrals: SURJIT OSORIO MD [ACTIVE STAFF] - Follow up in 3-5 days
[2019-02-14 16:34] VITALS: BP 133/86
== END 2019-02-14 16:32 | disposition home or self-care (01) ==
LOC: ER 12:58
DX: G89.18 Other acute postprocedural pain (principal); R10.9 Unspecified abdominal pain; F17.200 Nicotine dependence, unspecified, uncomplicated; I10 Essential (primary) hypertension
CPT/HCPCS: 74176; 99283

== ENCOUNTER 2019-05-14 13:46 | Emergency (ER) | payer MEDICAID ==
--- NOTE | 2019-05-14 14:10 | ER Document Report ---
Addendum entered and electronically signed by KIEL ANTHONY NP 05/14/19 14:32: Course - Re-evaluation Re-evalutation: 05/14/19 14:32 Patient was attempting to light a cigarette and internal waiting. Cigarette and rn lvn removed from patient. - Vital Signs Vital signs: Temp Pulse Resp BP Pulse Ox 97.8 F 81 18 127/87 H 96 05/14/19 13:50 05/14/19 13:50 05/14/19 13:50 05/14/19 13:50 05/14/19 13:50 - Laboratory Result Diagrams: 05/14/19 14:17 05/14/19 14:17 Original Note: ED Medical Screen (RME) - General Chief Complaint: Suicidal Ideation Stated Complaint: SUICIDAL IDEATIONS Time Seen by Provider: 05/14/19 14:04 Mode of Arrival: Ambulatory Information source: Patient Notes: Pt presents to the ED for SI. +ETOH, reports he has attempted Suicide before. Patient reports he has nothing to live for. I have greeted and performed a rapid initial assessment of this patient. A comprehensive ED assessment and evaluation of the patient, analysis of test results and completion of the medical decision making process will be conducted by additional ED providers. Dictation of this chart was performed using voice recognition software; therefore, there may be some unintended grammatical errors. TRAVEL OUTSIDE OF THE [place] IN LAST 30 DAYS: No - Related Data Allergies/Adverse Reactions: No Known Allergies Allergy (Verified 05/14/19 13:48) Past Medical History - Past Medical History Cardiac Medical History: Reports: Hx Hypertension Denies: Hx Coronary Artery Disease, Hx Heart Attack Pulmonary Medical History: Reports: Hx COPD Denies: Hx Asthma, Hx Bronchitis, Hx Pneumonia Neurological Medical History: Denies: Hx Cerebrovascular Accident, Hx Seizures Renal/ Medical History: Denies: Hx Peritoneal Dialysis Musculoskeltal Medical History: Denies Hx Arthritis Psychiatric Medical History: Reports: Hx Attention Deficit Hyperactivity Disorder, Hx Schizophrenia Past Surgical History: Reports: Hx Appendectomy - Immunizations Hx Diphtheria, Pertussis, Tetanus Vaccination: Yes Physical Exam - Vital signs Vitals: Temp Pulse Resp BP Pulse Ox 97.8 F 81 18 127/87 H 96 05/14/19 13:50 05/14/19 13:50 05/14/19 13:50 05/14/19 13:50 05/14/19 13:50 Course - Vital Signs Vital signs: Temp Pulse Resp BP Pulse Ox 97.8 F 81 18 127/87 H 96 05/14/19 13:50 05/14/19 13:50 05/14/19 13:50 05/14/19 13:50 05/14/19 13:50
[2019-05-14 14:29] LABS: ABSOLUTE BASOPHILS # (AUTO) 0.1 10^3/uL (0.0-0.2); ABSOLUTE EOSINOPHILS # (AUTO) 0.1 10^3/uL (0.0-0.6); ABSOLUTE LYMPHOCYTES (AUTO) 2.7 10^3/uL (0.5-4.7); ABSOLUTE MONOCYTES (AUTO) 0.6 10^3/uL (0.1-1.4); ABSOLUTE NEUT (AUTO) 4.2 10^3/uL (1.7-8.2); BASOPHILS % (AUTO) 1.1 % (0-2); EOSINOPHILS % (AUTO) 1.6 % (0-6); HEMATOCRIT 41.9 % (37.9-51.0); HEMOGLOBIN 14.6 g/dL (13.5-17.0); LYMPHOCYTES % (AUTO) 34.8 % (13-45); MEAN CORPUSCULAR HEMOGLOBIN 31.5 pg (27.0-33.4); MEAN CORPUSCULAR HGB CONC 34.8 g/dL (32.0-36.0); MEAN CORPUSCULAR VOLUME 91 fl (80-97); PLATELET COUNT 301 10^3/uL (150-450); RED BLOOD COUNT 4.62 10^6/uL (4.35-5.55); RED CELL DISTRIBUTION WIDTH 14.8 % (11.5-14.0); SEGMENTED NEUTROPHILS % (AUTO) 54.5 % (42-78); TOTAL CELLS COUNTED % (AUTO) 100 %; WHITE BLOOD COUNT 7.8 10^3/uL (4.0-10.5)
[2019-05-14 14:55] LABS: ALANINE AMINOTRANSFERASE 22 U/L (21-72); ALBUMIN 4.5 g/dL (3.5-5.0); ALCOHOL 242 mg/dL (NONE DETECTED); ALKALINE PHOSPHATASE 87 U/L (38-126); ANION GAP 12 (5-19); ASPARTATE AMINO TRANSFERASE 23 U/L (17-59); BILIRUBIN,DIRECT 0.2 mg/dL (0.0-0.4); BILIRUBIN,TOTAL 0.4 mg/dL (0.2-1.3); BLOOD UREA NITROGEN 11 mg/dL (7-20); CALCIUM 9.2 mg/dL (8.4-10.2); CARBON DIOXIDE 30 mmol/L (22-30); CHLORIDE 101 mmol/L (98-107); GLUCOSE 91 mg/dL (75-110); POTASSIUM 4.1 mmol/L (3.6-5.0); SODIUM 142.8 mmol/L (137-145); TOTAL PROTEIN 7.7 g/dL (6.3-8.2)
[2019-05-14 14:56] LABS: ACETAMINOPHEN < 10 ug/mL (10-30); SALICYLATE < 1.0 mg/dL (2.0-20.0)
--- NOTE | 2019-05-14 15:04 | ER Document Report ---
ED Psych Disorder / Suicide <LIMFELICITY - Last Filed: 05/14/19 16:25> - General Mode of Arrival: Ambulatory TRAVEL OUTSIDE OF THE [place] IN LAST 30 DAYS: No <JUDITH REYNLODS - Last Filed: 05/14/19 19:29> - General Chief Complaint: Suicidal Ideation Stated Complaint: SUICIDAL IDEATIONS Time Seen by Provider: 05/14/19 14:04 Primary Care Provider: [facility] [Outside] - Follow up as needed Notes: Here for evaluation of suicidal ideation.Pt presents to the ED for SI. Admits to drinking alcohol. Has had suicidal thoughts before. Says he feels he has nothing to live for. Frequent visitor to our emergency department and known well patient does not have a plan for suicide. Patient says he does not have an y medications because he cannot afford them. Says he supposed to be on blood pressure medicines but cannot afford them. Is able to afford cigarettes and alcohol. "Anyway I can" . (JUDITH REYNOLDS) - Related Data Allergies/Adverse Reactions: No Known Allergies Allergy (Verified 05/14/19 13:48) Past Medical History - General Information source: Patient - Social History Smoking Status: Current Every Day Smoker Chew tobacco use (# tins/day): No Frequency of alcohol use: daily Drug Abuse: None Family History: Reviewed & Not Pertinent Patient has suicidal ideation: Yes Patient has homicidal ideation: Yes - Past Medical History Cardiac Medical History: Reports: Hx Hypertension Pulmonary Medical History: Reports: Hx COPD Psychiatric Medical History: Reports: Hx Attention Deficit Hyperactivity Disorder, Hx Schizophrenia Past Surgical History: Reports: Hx Appendectomy - Immunizations Hx Diphtheria, Pertussis, Tetanus Vaccination: Yes <JUDITH REYNOLDS - Last Filed: 05/14/19 19:29> Review of Systems <JUDITH REYNOLDS - Last Filed: 05/14/19 19:29> - Review of Systems Notes: CONSTITUTIONAL : Denies fever. CARDIOVASCULAR: Denies chest pain. RESPIRATORY: Denies cough, chest congestion, or shortness of breath currently. GASTROINTESTINAL: Denies abdominal pain or nausea, vomiting, or diarrhea. GENITOURINARY: Denies difficulty or painful urinating, urinary frequency, blood in urine. (JUDITH REYNOLDS) Physical Exam - Vital signs Interpretation: Normal <JUDITH REYNOLDS - Last Filed: 05/14/19 19:29> - Vital signs Vitals: Temp Pulse Resp BP Pulse Ox 97.8 F 81 18 127/87 H 96 05/14/19 13:50 05/14/19 13:50 05/14/19 13:50 05/14/19 13:50 05/14/19 13:50 Notes: PHYSICAL EXAMINATION: GENERAL: Well-appearing, no acute distress. Vital signs are all normal. Patient is awake and alert and answers questions appropriately. HEAD: Atraumatic, normocephalic. NECK: Normal range of motion, supple. LUNGS: Breath sounds clear and equal bilaterally. Few scattered inconsequential wheezes heard. HEART: Regular rate and rhythm without murmurs heard. ABDOMEN: Soft, nontender. No guarding or rebound or masses felt. (JUDITH REYNOLDS) Course - Laboratory Result Diagrams: 05/14/19 14:17 05/14/19 14:17 <FELICITY LIM - Last Filed: 05/14/19 16:25> - Laboratory Result Diagrams: 05/14/19 14:17 05/14/19 14:17 <JUDITH REYNOLDS - Last Filed: 05/14/19 19:29> - Re-evaluation Re-evalutation: 05/14/19 19:28 Alcohol level 242. I feel patient is safe to be discharged with this level as he probably has a level around this number quite frequently. (JUDITH REYNOLDS) - Vital Signs Vital signs: Temp Pulse Resp BP Pulse Ox 98.1 F 80 16 120/84 98 05/14/19 17:13 05/14/19 17:13 05/14/19 17:13 05/14/19 17:13 05/14/19 17:13 - Laboratory Laboratory results interpreted by me: 05/14/19 05/14/19 14:17 14:17 RDW 14.8 H Salicylates < 1.0 L Acetaminophen < 10 L Discharge <FELICITY LIM - Last Filed: 05/14/19 16:25> <JUDITH REYNOLDS - Last Filed: 05/14/19 19:29> - Discharge Clinical Impression: Depressed, Homeless, Substance abuse Condition: Stable Disposition: HOME, SELF-CARE Additional Instructions: You have been evaluated both medical and behavioral health teams and been deemed appropriate for discharge. You have been provided a resource list of area providers including mobile crisis contact information and economic resource list. You are highly encouraged to follow-up with outpatient mental health services. DEPRESSION: Your evaluation reveals that you have mental depression. While symptoms may be vague, they often include disturbance of sleep, fatigue, loss of appetite, and general loss of interest in life. While depression may be a side effect of drugs, or a reaction to a major change in your life, many cases have no known cause. If depression is acute, and related to a major loss in your life, you can expect it to clear completely with time. If you have been depressed a long time, are prone to repeated bouts of depression or low mood, or have been thinking of suicide, get help. Depression can be treated with anti-depressant medication and counselling. Long-term depression will often take a few weeks to clear, even with appropriate medication. Follow-up care is important. FOLLOW-UP CARE: If you have been referred to a physician for follow-up care, call the physicians office for an appointment as you were instructed or within the next two days.~ If you experience worsening or a significant change in your symptoms, notify the physician immediately or return to the Emergency Department at any time for re-evaluation. Referrals: [facility] [Outside] - Follow up as needed
[2019-05-14 15:44] LABS: APPEARANCE,URINE TURBID; BILIRUBIN,URINE NEGATIVE (NEGATIVE); COLOR,URINE AMBER; GLUCOSE, URINE NEGATIVE (NEGATIVE); KETONES,URINE NEGATIVE (NEGATIVE); LEUKOCYTE ESTERASE,URINE NEGATIVE (NEGATIVE); NITRITE,URINE NEGATIVE (NEGATIVE); PROTEIN,URINE NEGATIVE (NEGATIVE); URINE SPECIFIC GRAVITY 1.017; UROBILINOGEN,URINE NEGATIVE mg/dL (<2.0)
[2019-05-14 15:58] LABS: URINE AMPHETAMINES SCREEN NEGATIVE; URINE BARBITURATES SCREEN NEGATIVE; URINE BENZODIAZEPINES SCREEN NEGATIVE; URINE COCAINE SCREEN NEGATIVE; URINE MARIJUANA (THC) SCREEN UNCONFIRMED POSITIVE; URINE METHADONE SCREEN NEGATIVE; URINE PHENCYCLIDINE SCREEN NEGATIVE
[2019-05-14 17:14] VITALS: BP 120/84
--- NOTE | 2019-05-14 19:35 | EKG REPORT ---
SEVERITY:- NORMAL ECG - SINUS RHYTHM : Confirmed by: Caro Mahmood MD 14-May-2019 19:34:15
== END 2019-05-14 17:15 | disposition home or self-care (01) ==
LOC: ER 13:46
DX: F32.9 Major depressive disorder, single episode, unspecified (principal); Z59.0 Homelessness; F19.10 Other psychoactive substance abuse, uncomplicated; R45.851 Suicidal ideations; R45.850 Homicidal ideations; I10 Essential (primary) hypertension; T50.906A Underdosing of unspecified drugs, medicaments and biological substances, initial encounter; Z91.120 Patient's intentional underdosing of medication regimen due to financial hardship; Z91.14 Patient's other noncompliance with medication regimen; F17.210 Nicotine dependence, cigarettes, uncomplicated; J44.9 Chronic obstructive pulmonary disease, unspecified
CPT/HCPCS: 36415; 80053; 80307; 81001; 85025; 93005; 93010; 99285

== ENCOUNTER 2019-09-28 12:07 | Emergency (ER) | payer MEDICAID, OTHER ==
--- NOTE | 2019-09-28 12:32 | ER Document Report ---
ED Medical Screen (RME) - General Chief Complaint: Altered Mental Status Stated Complaint: CHEST PAIN Time Seen by Provider: 09/28/19 12:27 Information source: Friend Notes: 53-year-old male presented to ED for altered mental status. A friend and neighbor states that she was called because he was out wandering around acting different than his normal. She states he does have some mental illnesses and he has been complaining that he is having chest pain and a headache and she does not know what is going on with him that he has not been normally acting this way. He is crying and all over the chair in the pit area. She states he is not normally acting this way. I have greeted and performed a rapid initial assessment of this patient. A comprehensive ED assessment and evaluation of the patient, analysis of test results and completion of medical decision making process will be conducted by an additional ED providers. TRAVEL OUTSIDE OF THE [place] IN LAST 30 DAYS: No - Related Data Allergies/Adverse Reactions: No Known Allergies Allergy (Verified 05/14/19 13:48) Past Medical History - Past Medical History Cardiac Medical History: Reports: Hx Hypertension Denies: Hx Coronary Artery Disease, Hx Heart Attack Pulmonary Medical History: Reports: Hx COPD Denies: Hx Asthma, Hx Bronchitis, Hx Pneumonia Neurological Medical History: Denies: Hx Cerebrovascular Accident, Hx Seizures Renal/ Medical History: Denies: Hx Peritoneal Dialysis Musculoskeltal Medical History: Denies Hx Arthritis Psychiatric Medical History: Reports: Hx Attention Deficit Hyperactivity Disorder, Hx Schizophrenia Past Surgical History: Reports: Hx Appendectomy - Immunizations Hx Diphtheria, Pertussis, Tetanus Vaccination: Yes
[2019-09-28 13:20] LABS: ABSOLUTE BASOPHILS # (AUTO) 0.1 10^3/uL (0.0-0.2); ABSOLUTE LYMPHOCYTES (AUTO) 1.9 10^3/uL (0.5-4.7); ABSOLUTE MONOCYTES (AUTO) 0.9 10^3/uL (0.1-1.4); BASOPHILS % (AUTO) 0.6 % (0-2); EOSINOPHILS % (AUTO) 0.2 % (0-6); HEMATOCRIT 41.6 % (37.9-51.0); HEMOGLOBIN 14.2 g/dL (13.5-17.0); LYMPHOCYTES % (AUTO) 16.1 % (13-45); MEAN CORPUSCULAR HEMOGLOBIN 31.6 pg (27.0-33.4); MEAN CORPUSCULAR HGB CONC 34.2 g/dL (32.0-36.0); MEAN CORPUSCULAR VOLUME 93 fl (80-97); MONOCYTES % (AUTO) 7.8 % (3-13); PLATELET COUNT 307 10^3/uL (150-450); RED CELL DISTRIBUTION WIDTH 13.2 % (11.5-14.0); SEGMENTED NEUTROPHILS % (AUTO) 75.3 % (42-78); TOTAL CELLS COUNTED % (AUTO) 100 %; WHITE BLOOD COUNT 11.9 10^3/uL (4.0-10.5)
[2019-09-28 13:30] LABS: INTERNATIONAL RATION (INR) 0.92; PARTIAL THROMBOPLASTIN TIME 28.6 SEC (23.5-35.8); PROTHROMBIN TIME 12.4 SEC (11.4-15.4)
--- NOTE | 2019-09-28 13:31 | RADIOLOGY REPORT (SQ) ---
EXAM DESCRIPTION: CT HEAD WITHOUT COMPLETED DATE/TIME: 09/28/2019 1:21 pm REASON FOR STUDY: Altered mental status COMPARISON: 03/05/2018 TECHNIQUE: Axial images acquired through the brain without intravenous contrast. Images reviewed wi th bone, brain and subdural windows. Additional sagittal and coronal reconstructions were generated. Images stored on PACS. All CT scanners at this facility use dose modulation, iterative reconstruction, and/or weight based d osing when appropriate to reduce radiation dose to as low as reasonably achievable (ALARA). [facility]: Dose Right [facility]: CareDose [facility]: Dose Right [facility]: Teradose 4D [facility]: Catbird RADIATION DOSE: CT Rad equipment meets quality standard of care and radiation dose reduction techniq ues were employed. CTDIvol: 55.2 mGy. DLP: 1139 mGy-cm. mGy. LIMITATIONS: None. FINDINGS: VENTRICLES: Normal size and contour. CEREBRUM: No masses. No hemorrhage. No midline shift. No evidence for acute infarction. Normal gra y/white matter differentiation. No areas of low density in the white matter. CEREBELLUM: No masses. No hemorrhage. No alteration of density. No evidence for acute infarction. EXTRAAXIAL SPACES: No fluid collections. No masses. ORBITS AND GLOBE: No intra- or extraconal masses. Normal contour of globe without masses. CALVARIUM: No fracture. PARANASAL SINUSES: No fluid or mucosal thickening. SOFT TISSUES: No mass or hematoma. OTHER: No other significant finding. IMPRESSION: NORMAL BRAIN CT WITHOUT CONTRAST. EVIDENCE OF ACUTE STROKE: NO. COMMENT: Quality ID # [id number]: Final reports with documentation of one or more dose reduction techniques (e.g., Automated exposure control, adjustment of the mA and/or kV according to patient size, use of iterative reconstruction technique) TECHNICAL DOCUMENTATION: JOB ID: [id number] [employer]- All Rights Reserved Reading location - IP/workstation name: [email or web address]
[2019-09-28 13:41] LABS: ALCOHOL < 10 mg/dL (NONE DETECTED); ALKALINE PHOSPHATASE 77 U/L (38-126); ANION GAP 12 (5-19); ASPARTATE AMINO TRANSFERASE 18 U/L (17-59); BILIRUBIN,DIRECT 0.2 mg/dL (0.0-0.4); BILIRUBIN,TOTAL 0.3 mg/dL (0.2-1.3); BLOOD UREA NITROGEN 20 mg/dL (7-20); CALCIUM 9.1 mg/dL (8.4-10.2); CARBON DIOXIDE 23 mmol/L (22-30); CHLORIDE 108 mmol/L (98-107); CREATINE KINASE 61 U/L (55-170); GLUCOSE 96 mg/dL (75-110); POTASSIUM 4.1 mmol/L (3.6-5.0); TOTAL PROTEIN 6.8 g/dL (6.3-8.2)
--- NOTE | 2019-09-28 13:43 | RADIOLOGY REPORT (SQ) ---
EXAM DESCRIPTION: CHEST 2 VIEWS COMPLETED DATE/TIME: 09/28/2019 1:30 pm REASON FOR STUDY: Altered mental status COMPARISON: 02/13/2019 EXAM PARAMETERS: NUMBER OF VIEWS: two views TECHNIQUE: Digital Frontal and Lateral radiographic views of the chest acquired. RADIATION DOSE: NA LIMITATIONS: none FINDINGS: LUNGS AND PLEURA: No opacities, masses or pneumothorax. No pleural effusion. MEDIASTINUM AND HILAR STRUCTURES: No masses or contour abnormalities. HEART AND VASCULAR STRUCTURES: Heart normal size. No evidence for failure. BONES: No acute findings. HARDWARE: None in the chest. OTHER: No other significant finding. IMPRESSION: NO ACUTE RADIOGRAPHIC FINDING IN THE CHEST. TECHNICAL DOCUMENTATION: JOB ID: [id number] [employer]- All Rights Reserved Reading location - IP/workstation name: [email or web address]
[2019-09-28] MEDS ORDERED: NORMAL SALINE 1000 ML 1,000 ML IV ONE (13:44)
[2019-09-28 13:52] LABS: CREATINE KINASE MB 0.46 ng/mL (<4.55); TROPONIN I < 0.012 ng/mL
[2019-09-28] MEDS ORDERED: LORAZEPAM 1 MG TABLET PO ONE (14:13)
[2019-09-28 14:23] LABS: APPEARANCE,URINE CLEAR; BILIRUBIN,URINE NEGATIVE (NEGATIVE); COLOR,URINE YELLOW; GLUCOSE, URINE NEGATIVE (NEGATIVE); KETONES,URINE NEGATIVE (NEGATIVE); LEUKOCYTE ESTERASE,URINE NEGATIVE (NEGATIVE); NITRITE,URINE NEGATIVE (NEGATIVE); PROTEIN,URINE NEGATIVE (NEGATIVE); URINE SPECIFIC GRAVITY 1.024
[2019-09-28 14:44] LABS: URINE AMPHETAMINES SCREEN NEGATIVE; URINE BARBITURATES SCREEN NEGATIVE; URINE BENZODIAZEPINES SCREEN NEGATIVE; URINE COCAINE SCREEN NEGATIVE; URINE MARIJUANA (THC) SCREEN UNCONFIRMED POSITIVE; URINE METHADONE SCREEN NEGATIVE; URINE PHENCYCLIDINE SCREEN NEGATIVE
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
[2019-09-28 15:17] LABS: ACETAMINOPHEN < 10 ug/mL (10-30); SALICYLATE < 1.0 mg/dL (2.0-20.0)
--- NOTE | 2019-09-29 09:38 | EKG REPORT ---
SEVERITY:- OTHERWISE NORMAL ECG - SINUS TACHYCARDIA BORDERLINE RIGHT AXIS DEVIATION : Confirmed by: Juana Smith 29-Sep-2019 09:37:36
--- NOTE | 2019-09-29 12:43 | ER Document Report ---
Doctor's Note Notes: 09/29/19 12:42 I have evaluated patient at bedside. He is conscious alert and oriented x4. Patient voices that he has to use the restroom. I have showed him where the bathroom is located. Patient then voices "I have 1 million thoughts going through my head." He is denying any homicidal or suicidal ideations at this time. Patient voices he has no medical problems, takes no daily medications, has no allergies. Patient voices a friend brought him to the emergency department for "my thoughts." Patient has been evaluated by psychiatric services, Clyde Post is requesting Depakote 250 mg twice daily, Zyprexa 2.5 mg twice daily. These medications were ordered. GENERAL: Alert, interacts well. No acute distress. LUNGS: Clear to auscultation bilaterally, no wheezes, rales, or rhonchi. No respiratory distress. HEART: Regular rate and rhythm. No murmur PSYCH: Normal affect, normal mood.
[2019-09-29] MEDS: DIVALPROEX SODIUM 250 MG TABLET.DR PO SCH (18:10)
[2019-09-29] MEDS: OLANZAPINE 2.5 MG TABLET PO SCH (18:10)
[2019-09-30] MEDS: DIVALPROEX SODIUM 250 MG TABLET.DR PO SCH ×2 (09:31→18:54)
[2019-09-30] MEDS: OLANZAPINE 2.5 MG TABLET PO SCH ×2 (09:32→18:53)
--- NOTE | 2019-09-30 15:30 | ER Document Report ---
Doctor's Note Notes: 09/30/19 15:26 Chart reviewed rounded on patient. Patient is calm. Denies needs at these times. 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 He reports he was brought here because he was having a panic attack. He denies confusion. Reports that the last thing he remembers was telling his friend he did call him when he had to be picked up. The more we talked the more the patient seemed to become agitated. He reports all he wants is a cigarette but declines nicotine patch. He did denies suicide and homicide ideations. I contacted Clyde the mental health worker and she reports that she is going to seek placement for him for inpatient psychiatric care. PHYSICAL EXAMINATION: GENERAL: Well-appearing and in no acute distress HEAD: Atraumatic, normocephalic. EYES: Pupils equal round extraocular movements intact, sclera anicteric, conjunctiva are normal. ENT: nares patent Moist mucous membranes. NECK: Normal range of motion, supple LUNGS: RR even unlabored HEART: Regular rate ABDOMEN: Denies abdominal pain EXTREMITIES: Normal range of motion NEUROLOGICAL: Cranial nerves grossly intact PSYCH: Normal mood, calm SKIN: Warm, Dry, normal turgor, no rashes or lesions noted 09/30/19 20:32 Patient remained calm all day resting quietly in bed waiting placement. Report given to OLIVER Acosta
--- NOTE | 2019-10-01 10:43 | PSYCHOLOGICAL NOTE ---
Psych Note - Psych Note Date seen by psych provider: 10/01/19 Time seen by psych provider: 09:20 Psych Note: Reason for consult: Reevaluation Patient presented to ED via POV. Patient is a 53-year-old male who presented with an altered mental status. Per report, patient has an extensive history of methamphetamine use. Patient toxicology result is positive for marijuana. Patient denies substance use and a desire to engage in substance use. Patient stated he is fine. Patient reported being scared and stated he had questions. Patient spoke of issues from childhood. Patient stated he was incarcerated 6 times. Patient states he primarily watches tv in my room. Patient reports hearing door slams and seeing shadows walking by. Patient spoke about not recognizing myself in the mirror because Im inside myself. Patient would follow up this statement with a statement regarding his spiritual beliefs. Clinician did not observe any delusional speech related to hindu or spirituality. Patient spoke about not wanting to hurt himself or anybody else. Patient stated he has a million billion things in my mind. Patient spoke of family being scattered. Patient alluded to other family members who are incarcerated and a daughter that may be at [facility]. Patient frequently weaved past issues into the current conversation. Patient was reluctant to use the restroom because he did not want to get in trouble. Clinician explained to patient he could use the restroom and not get in trouble. Clinician walked with patient to the door, however patient stood at the doorway seemingly reluctant to step out. Patient is alert and oriented to person, place, time and circumstance. Mood is normal with congruent affect as evidenced by smiling, laughing and engaging with clinician, however patient was emotional when describing emotional distress. Patient denies suicidal and homicidal ideation. Delusions are present and behavior is somewhat congruent with an intact reality based presentation (i.e. organized and linear thought processes). Patient reports auditory and visual hallucinations. There is no observed behavior that suggests patient is responding to internal stimuli. Eye contact is fair. Conversational speech is within normal rate, tone, and prosody. Intellectual ability appears to be below average range. Attention and concentration are fair. Insight, judgment, and impulse control are fair. DSM Diagnosis: Possible, Major Depressive Disorder with mood congruent psychotic features Medication recommendations per [facility] contracted psychiatrist Dr. Abel GARCÍA is as follows: Continue Depakote 500MG, twice a day Continue Zyprexa 2.5MG, twice a day Impression/Plan: Patient is cleared from acute psychiatric services. Patient does not meet IVC criteria per [place] GS 122C. It is recommended that 24 hour IVC petition be rescinded. Patient experiences auditory and visual hallucinations. Patient denies suicidal and homicidal ideations. Patient could be experiencing concerns related to a combination of unprocessed childhood issues, institutionalized behaviors, and impaired cognitive functioning related to significant, assisted methamphetamine use. It is recommended patient engage in mental health services, to the degree possible, to process through thoughts and emotions related to childhood issues and being incarcerated. It is recommended that patient be monitored by a primary care physician who can assist with medication management and appropriate follow up care/case management. Dr. Taylor was consulted on the care and management of this patient; attending physician is in agreement with recommendations and disposition.
[2019-10-01] MEDS: DIVALPROEX SODIUM 250 MG TABLET.DR PO SCH (10:46)
[2019-10-01] MEDS: OLANZAPINE 2.5 MG TABLET PO SCH (10:47)
--- NOTE | 2019-10-01 13:29 | ER Document Report ---
Doctor's Note Notes: 10/01/19 13:28 Chart reviewed patient rounded on. Patient is watching TV calmly no apparent distress answers all questions appropriately. Plan is to discharge patient with supervision PHYSICAL EXAMINATION: GENERAL: Well-appearing and in no acute distress HEAD: Atraumatic, normocephalic. EYES: extraocular movements intact, sclera anicteric, conjunctiva are normal. ENT: nares patent, Moist mucous membranes. NECK: Normal range of motion, supple LUNGS: Respiratory rate even unlabored HEART: Regular rate EXTREMITIES: Normal range of motion, NEUROLOGICAL: Cranial nerves grossly intact. PSYCH: Normal mood, normal affect. Calm SKIN: Warm, Dry, normal turgor, no rashes or lesions noted Patient requested a shower which was provided for him. Mothers friend is here to pick him up now. After patient left it was noted that he did not receive medication prescriptions these were typed up and picked up by patient. Dictation of this chart was performed using voice recognition software; therefore, there may be some unintended grammatical errors.
[2019-10-01 14:16] VITALS: BP 114/74
== END 2019-10-01 13:56 | disposition home or self-care (01) ==
LOC: ER 12:07
DX: F33.3 Major depressive disorder, recurrent, severe with psychotic symptoms (principal); F41.9 Anxiety disorder, unspecified; R41.0 Disorientation, unspecified; R45.1 Restlessness and agitation; D72.829 Elevated white blood cell count, unspecified; R07.9 Chest pain, unspecified; I10 Essential (primary) hypertension; J44.9 Chronic obstructive pulmonary disease, unspecified; F17.200 Nicotine dependence, unspecified, uncomplicated
CPT/HCPCS: 93005; 99285; 96360; 96361; 36415; 82553; 80307 ×4; 82550; 83735; 84443; 85025; 85610; 85730; 80053; 81001; 84484; 71046; 70450; 93010; J3490 ×6; J7030

== ENCOUNTER 2020-05-13 18:33 | Emergency (ER) | payer MEDICAID, OTHER ==
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
[2020-05-13] MEDS ORDERED: MORPHINE SULFATE 10 MG/ML INJ IV ONE (22:41)
[2020-05-13] MEDS ORDERED: DIPH/PERTUSS(ACELL)/TETANUS VAC/PF 0.5 ML SYR (>=10YO) IM ONE (22:41)
[2020-05-13] MEDS ORDERED: BACITRACIN ZINC OINTMENT 15 GM TP ONE (22:42)
[2020-05-13] MEDS ORDERED: LIDOCAINE 2%/EPINEPHRINE INJ 20 ML VIAL INJ ONE (22:54)
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
[2020-05-14] MEDS ORDERED: HYDROCODONE/ACETAMINOPHEN 5-325 MG (6 TAB/ER DISP) PO PRN (00:08)
[2020-05-14 00:44] VITALS: BP 99/70
== END 2020-05-14 00:41 | disposition home or self-care (01) ==
LOC: ER 18:33
DX: S06.9X9A Unspecified intracranial injury with loss of consciousness of unspecified duration, initial encounter (principal); S01.01XA Laceration without foreign body of scalp, initial encounter; S50.11XA Contusion of right forearm, initial encounter; Y00.XXXA Assault by blunt object, initial encounter; F17.210 Nicotine dependence, cigarettes, uncomplicated; I10 Essential (primary) hypertension; J44.9 Chronic obstructive pulmonary disease, unspecified; Z23 Encounter for immunization
CPT/HCPCS: 99284; 90471; 96374; 73090; 70450; 90715; 12014; J3490 ×2; J2270

== ENCOUNTER 2020-09-07 03:07 | Emergency (ER) | payer MEDICAID ==
[2020-09-07 04:58] LABS: ABSOLUTE BASOPHILS # (AUTO) 0.1 10^3/uL (0.0-0.2); ABSOLUTE EOSINOPHILS # (AUTO) 0.1 10^3/uL (0.0-0.6); ABSOLUTE MONOCYTES (AUTO) 0.8 10^3/uL (0.1-1.4); ABSOLUTE NEUT (AUTO) 5.5 10^3/uL (1.7-8.2); BASOPHILS % (AUTO) 0.9 % (0-2); EOSINOPHILS % (AUTO) 1.3 % (0-6); HEMATOCRIT 44.2 % (37.9-51.0); HEMOGLOBIN 15.5 g/dL (13.5-17.0); LYMPHOCYTES % (AUTO) 23.3 % (13-45); MEAN CORPUSCULAR VOLUME 94 fl (80-97); MONOCYTES % (AUTO) 9.8 % (3-13); PLATELET COUNT 272 10^3/uL (150-450); RED CELL DISTRIBUTION WIDTH 13.8 % (11.5-14.0); SEGMENTED NEUTROPHILS % (AUTO) 64.7 % (42-78); TOTAL CELLS COUNTED % (AUTO) 100 %; WHITE BLOOD COUNT 8.5 10^3/uL (4.0-10.5)
[2020-09-07 05:07] LABS: ALBUMIN 4.1 g/dL (3.5-5.0); ALKALINE PHOSPHATASE 95 U/L (38-126); ANION GAP 11 (5-19); ASPARTATE AMINO TRANSFERASE 120 U/L (17-59); BILIRUBIN,DIRECT 0.2 mg/dL (0.0-0.4); BILIRUBIN,TOTAL 0.8 mg/dL (0.2-1.3); BLOOD UREA NITROGEN 10 mg/dL (7-20); CALCIUM 9.4 mg/dL (8.4-10.2); CARBON DIOXIDE 25 mmol/L (22-30); CHLORIDE 103 mmol/L (98-107); GLUCOSE 97 mg/dL (75-110); POTASSIUM 3.9 mmol/L (3.6-5.0)
[2020-09-07 05:09] LABS: ACETAMINOPHEN < 10 ug/mL (10-30); ALCOHOL < 10 mg/dL (NONE DETECTED); SALICYLATE < 1.0 mg/dL (2.0-20.0)
--- NOTE | 2020-09-07 05:59 | ER Document Report ---
ED Psych Disorder / Suicide - General Chief Complaint: Altered Mental Status Stated Complaint: PSYCH Time Seen by Provider: 09/07/20 05:36 Notes: Patient is a 54-year-old male who comes emergency department via EMS without a specific complaint that he can tell me. He states that he "just does not feel right", he states that he is "hurting in my mind", he states that "everyone is laughing like life is a joke but it is not". When I asked if he is depressed he will not answer me, when I asked if he is suicidal he states "I just want to be able to rest some help". He denies homicidal ideations, alcohol or drug use. He does state that he has been diagnosed with schizophrenia, he states he is not on any medications, he states that he did call EMS. He states that he has been "in and out of nursing home and there is no one that can help me". He denies sick symptoms or any pain. TRAVEL OUTSIDE OF THE [place] IN LAST 30 DAYS: No - Related Data Allergies/Adverse Reactions: No Known Allergies Allergy (Verified 09/07/20 03:31) Past Medical History - General Information source: Patient - Social History Smoking Status: Current Every Day Smoker Frequency of alcohol use: None Drug Abuse: None Lives with: Alone Family History: Reviewed & Not Pertinent - Past Medical History Cardiac Medical History: Reports: Hx Hypertension Denies: Hx Coronary Artery Disease, Hx Heart Attack Pulmonary Medical History: Reports: Hx COPD Denies: Hx Asthma, Hx Bronchitis, Hx Pneumonia Neurological Medical History: Denies: Hx Cerebrovascular Accident, Hx Seizures Renal/ Medical History: Denies: Hx Peritoneal Dialysis Musculoskeletal Medical History: Denies Hx Arthritis Psychiatric Medical History: Reports: Hx Attention Deficit Hyperactivity Disorder, Hx Schizophrenia Past Surgical History: Reports: Hx Appendectomy - Immunizations Hx Diphtheria, Pertussis, Tetanus Vaccination: Yes Review of Systems - Review of Systems Constitutional: No symptoms reported EENT: No symptoms reported Cardiovascular: No symptoms reported Respiratory: No symptoms reported Gastrointestinal: No symptoms reported Genitourinary: No symptoms reported Male Genitourinary: No symptoms reported Musculoskeletal: No symptoms reported Skin: No symptoms reported Hematologic/Lymphatic: No symptoms reported Neurological/Psychological: See HPI Physical Exam - Vital signs Vitals: Temp Pulse Resp BP Pulse Ox 98.7 F 85 18 131/82 H 97 09/07/20 03:18 09/07/20 03:18 09/07/20 03:18 09/07/20 03:18 09/07/20 03:18 - Notes Notes: GENERAL: Alert. No acute distress. HEAD: Normocephalic, atraumatic. EYES: Pupils equal, round, and reactive to light. Extraocular movements intact. ENT: Oral mucosa moist, tongue midline. Oropharynx unremarkable. Airway patent. NECK: Full range of motion. Supple. Trachea midline. No lymphadenopathy. LUNGS: Clear to auscultation bilaterally, no wheezes, rales, or rhonchi. No respiratory distress. Non-tender chest wall. HEART: Regular rate and rhythm. No murmur ABDOMEN: Soft, non-tender. Non-distended. EXTREMITIES: Moves all 4 extremities spontaneously. No edema, normal radial and dorsalis pedis pulses bilaterally. No cyanosis. BACK: no cervical, thoracic, lumbar midline tenderness. No saddle anesthesia, normal distal neurovascular exam. Moves all extremities in full range of motion. NEUROLOGICAL: Alert and oriented x3. Normal speech. Cranial nerves II through XII grossly intact. Strength 5/5 in all extremities. PSYCH: Poor eye contact, flat affect and occasionally slightly tearful, then resumes flat. Disorganized thought process with tangential thought. Not obviously responding to internal stimuli. SKIN: Warm, dry, normal turgor. No rashes or lesions noted. Course - Re-evaluation Re-evalutation: 09/07/20 05:55 Patient is tearful intermittently, restless intermittently, has a disorganized thought process, is slightly bizarre and paranoid in appearance. Patient has difficulty conveying clear concise thoughts. He denies any physical symptoms, his vital signs are unremarkable, his examination is unremarkable except for his psychiatric evaluation. CBC unremarkable, chemistry shows elevated LFTs with ALT greater than AST, alcohol is negative. EKG unremarkable. Patient has a nontender abdomen. LFT elevations are new but this is nonspecific given his exam. Regardless of urinalysis patient will still be medically cleared, he can have his LFTs rechecked outpatient for monitoring. However patient will require mental health evaluation because of his history of schizophrenia and his broken thought process. Patient is pending mental health evaluation. - Vital Signs Vital signs: Temp Pulse Resp BP Pulse Ox 98.7 F 85 25 H 125/72 96 09/07/20 03:18 09/07/20 03:18 09/07/20 06:01 09/07/20 06:00 09/07/20 06:01 - Laboratory Result Diagrams: 09/07/20 04:10 09/07/20 04:10 Laboratory results interpreted by me: 09/07/20 04:10 AST 120 H ALT 207 H Salicylates < 1.0 L Acetaminophen < 10 L - EKG Interpretation by Me Additional EKG results interpreted by me: EKG shows sinus rhythm at a rate of 71, QTc of 448, normal axis, no T wave inversions or ST segment changes in consecutive leads. There is a lot of artifact, patient is restless and occasionally jittery. Discharge - Discharge Clinical Impression: Disorganized thought process, Elevated LFTs Schizophrenia Qualifiers: Schizophrenia type: unspecified Qualified Code(s): F20.9 - Schizophrenia, unspecified Condition: Stable Disposition: PSYCH HOSP/UNIT
[2020-09-07 08:21] LABS: APPEARANCE,URINE CLEAR; BILIRUBIN,URINE NEGATIVE (NEGATIVE); COLOR,URINE YELLOW; GLUCOSE, URINE NEGATIVE (NEGATIVE); KETONES,URINE NEGATIVE (NEGATIVE); LEUKOCYTE ESTERASE,URINE NEGATIVE (NEGATIVE); NITRITE,URINE NEGATIVE (NEGATIVE); PROTEIN,URINE NEGATIVE (NEGATIVE); URINE SPECIFIC GRAVITY 1.017
[2020-09-07 08:40] LABS: URINE AMPHETAMINES SCREEN NEGATIVE; URINE BARBITURATES SCREEN NEGATIVE; URINE BENZODIAZEPINES SCREEN NEGATIVE; URINE COCAINE SCREEN NEGATIVE; URINE METHADONE SCREEN NEGATIVE; URINE PHENCYCLIDINE SCREEN NEGATIVE
[2020-09-07 08:41] LABS: URINE MARIJUANA (THC) SCREEN UNCONFIRMED POSITIVE
[2020-09-07] MEDS ORDERED: PREDNISONE 20 MG TABLET PO ONE (15:00)
[2020-09-07] MEDS ORDERED: IPRATROPIUM/ALBUTEROL 0.5-2.5 MG/3 ML AMPUL NEB ONE (15:00)
--- NOTE | 2020-09-07 22:07 | EKG REPORT ---
SEVERITY:- ABNORMAL ECG - SINUS RHYTHM CAN NOT R/O A-FLUTTER W/ VARIED AV BLOCK,REC REPEAT EKG WITH FILTERS NONSPECIFIC INTRAVENTRICULAR CONDUCTION DELAY ABNRM R PROG, CONSIDER ASMI OR LEAD PLACEMENT : Confirmed by: Juana Smith 07-Sep-2020 22:07:16
[2020-09-08] MEDS ORDERED: IPRATROPIUM/ALBUTEROL 0.5-2.5 MG/3 ML AMPUL NEB ONE (08:50)
--- NOTE | 2020-09-08 08:53 | ER Document Report ---
Doctor's Note Notes: 09/08/20 08:52 PHYSICAL EXAMINATION: GENERAL: Well-appearing and in no acute distress. HEAD: Atraumatic, normocephalic. EYES: sclera anicteric, conjunctiva are normal. ENT: nares patent. Moist mucous membranes. NECK: Normal range of motion, supple without lymphadenopathy LUNGS: Wheezing bilaterally, occasional dry cough HEART: Regular rate and rhythm without murmurs EXTREMITIES: Normal range of motion, no pitting edema. BACK: No CVA tenderness NEUROLOGICAL: Cranial nerves grossly intact. Normal speech. Normal gait. PSYCH: Auditory hallucinations SKIN: Warm, Dry, normal turgor, no rashes or lesions noted Patient reports hearing people talking rumors about him. Patient states he is hearing people that he knows. Patient states that he did not do anything wrong. Provider attempted to reassure patient. Pt continues with bilateral wheezing, respirations unlabored. 09/08/20 13:42 Patient has been accepted to the [facility] facility, patient is stable for transfer at this time.
[2020-09-08] MEDS ORDERED: PREDNISONE 20 MG TABLET PO SCH (10:00)
[2020-09-08] MEDS ORDERED: ALBUTEROL SULFATE 0.083% NEB 2.5 MG/3 ML AMPUL NEB SCH (10:00)
--- NOTE | 2020-09-08 10:14 | RADIOLOGY REPORT (SQ) ---
EXAM DESCRIPTION: CHEST SINGLE VIEW IMAGES COMPLETED DATE/TIME: 09/08/2020 9:52 am REASON FOR STUDY: cough COMPARISON: 09/28/2019. EXAM PARAMETERS: NUMBER OF VIEWS: One view. TECHNIQUE: Single frontal radiographic view of the chest acquired. RADIATION DOSE: NA LIMITATIONS: None. FINDINGS: LUNGS AND PLEURA: Linear densities in the right lung base. No lobar infiltrate, masses or pneumothorax. No pleural effusion. MEDIASTINUM AND HILAR STRUCTURES: No masses. Contour normal. HEART AND VASCULAR STRUCTURES: Heart normal in size. Normal vasculature. BONES: No acute findings. HARDWARE: None in the chest. OTHER: No other significant finding. IMPRESSION: LINEAR DENSITIES IN THE RIGHT LUNG BASE MAY BE DUE TO ATELECTASIS AND/OR SCARRING. ANYA Y INFILTRATE LESS LIKELY BUT NOT EXCLUDED. TECHNICAL DOCUMENTATION: JOB ID: [id number] 2010 [employer]- All Rights Reserved Reading location - IP/workstation name: [email or web address]
[2020-09-08 13:49] VITALS: BP 120/68
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
== END 2020-09-08 13:54 ==
LOC: ER 03:07
DX: F20.9 Schizophrenia, unspecified (principal); J44.9 Chronic obstructive pulmonary disease, unspecified; F17.200 Nicotine dependence, unspecified, uncomplicated; I10 Essential (primary) hypertension; R74.01 Elevation of levels of liver transaminase levels
CPT/HCPCS: 93005; 94640; 99285; 36415; 80307 ×4; 85025; 80053; 81001; 71045; 93010; J7512 ×2; J7613

== ENCOUNTER 2020-09-14 19:53 | Emergency (ER) | payer MEDICAID, OTHER ==
[2020-09-14 20:55] LABS: ABSOLUTE LYMPHOCYTES (AUTO) 1.1 10^3/uL (0.5-4.7); ABSOLUTE MONOCYTES (AUTO) 1.2 10^3/uL (0.1-1.4); ABSOLUTE NEUT (AUTO) 9.9 10^3/uL (1.7-8.2); BASOPHILS % (AUTO) 0.4 % (0-2); EOSINOPHILS % (AUTO) 0.4 % (0-6); HEMOGLOBIN 17.2 g/dL (13.5-17.0); LYMPHOCYTES % (AUTO) 8.9 % (13-45); MEAN CORPUSCULAR HEMOGLOBIN 33.4 pg (27.0-33.4); MEAN CORPUSCULAR HGB CONC 35.8 g/dL (32.0-36.0); MEAN CORPUSCULAR VOLUME 93 fl (80-97); MONOCYTES % (AUTO) 10.1 % (3-13); PLATELET COUNT 263 10^3/uL (150-450); RED BLOOD COUNT 5.14 10^6/uL (4.35-5.55); RED CELL DISTRIBUTION WIDTH 13.6 % (11.5-14.0); SEGMENTED NEUTROPHILS % (AUTO) 80.2 % (42-78); TOTAL CELLS COUNTED % (AUTO) 100 %; WHITE BLOOD COUNT 12.3 10^3/uL (4.0-10.5)
[2020-09-14 21:07] LABS: ALBUMIN 4.4 g/dL (3.5-5.0); ALKALINE PHOSPHATASE 81 U/L (38-126); ANION GAP 12 (5-19); ASPARTATE AMINO TRANSFERASE 113 U/L (17-59); BILIRUBIN,DIRECT 0.4 mg/dL (0.0-0.4); BILIRUBIN,TOTAL 1.3 mg/dL (0.2-1.3); BLOOD UREA NITROGEN 23 mg/dL (7-20); CALCIUM 9.7 mg/dL (8.4-10.2); CARBON DIOXIDE 25 mmol/L (22-30); CHLORIDE 97 mmol/L (98-107); GLUCOSE 92 mg/dL (75-110); POTASSIUM 5.1 mmol/L (3.6-5.0); TOTAL PROTEIN 7.6 g/dL (6.3-8.2)
[2020-09-14 21:08] LABS: ACETAMINOPHEN < 10 ug/mL (10-30); ALCOHOL < 10 mg/dL (NONE DETECTED); SALICYLATE < 1.0 mg/dL (2.0-20.0)
--- NOTE | 2020-09-14 21:19 | ER Document Report ---
ED General - General Chief Complaint: Psych Problem Stated Complaint: PARANOID ANXIETY Time Seen by Provider: 09/14/20 21:18 Primary Care Provider: SCAR DAVIES FNP-C [Primary Care Provider] - Follow up as needed TRAVEL OUTSIDE OF THE [place] IN LAST 30 DAYS: No - HPI Notes: 54-year-old male presents with paranoia. Patient states that he is scared that people are out to kill him, he states he feels nervous. He does not know a specific person who is out to get him, he states he is not in any trouble, he states he has not had anyone attempted to harm him. Patient answers "I don't know" to most questions. He denies drug or alcohol use. He is unsure if he is taking his prescribed medications. He is able to state that he was at [facility] last week, however he is unsure why he was there. He denies chest pain, shortness of breath, abdominal pain. Patient limited historian. - Related Data Allergies/Adverse Reactions: No Known Allergies Allergy (Verified 09/07/20 03:31) Past Medical History - General Information source: Patient - Social History Smoking Status: Current Every Day Smoker Family History: Reviewed & Not Pertinent - Past Medical History Cardiac Medical History: Reports: Hx Hypertension Denies: Hx Coronary Artery Disease, Hx Heart Attack Pulmonary Medical History: Reports: Hx COPD Denies: Hx Asthma, Hx Bronchitis, Hx Pneumonia Neurological Medical History: Denies: Hx Cerebrovascular Accident, Hx Seizures Renal/ Medical History: Denies: Hx Peritoneal Dialysis Musculoskeletal Medical History: Denies Hx Arthritis Psychiatric Medical History: Reports: Hx Attention Deficit Hyperactivity Disorder, Hx Schizophrenia Past Surgical History: Reports: Hx Appendectomy - Immunizations Hx Diphtheria, Pertussis, Tetanus Vaccination: Yes Review of Systems - Review of Systems Constitutional: No symptoms reported EENT: No symptoms reported Cardiovascular: denies: Chest pain Respiratory: denies: Short of breath Gastrointestinal: denies: Abdominal pain Genitourinary: No symptoms reported Male Genitourinary: No symptoms reported Musculoskeletal: No symptoms reported Skin: No symptoms reported Hematologic/Lymphatic: No symptoms reported Neurological/Psychological: denies: Suicidal ideation Physical Exam - Vital signs Vitals: Resp BP 21 H 144/91 H 09/14/20 19:59 09/14/20 19:59 - General General appearance: Alert In distress: None - HEENT Head: Normocephalic, Atraumatic Extraocular movements intact: Yes Pupils: PERRL - Respiratory Breath sounds: Normal - Cardiovascular Rhythm: Regular Heart sounds: Normal auscultation - Abdominal Tenderness: Nontender - Extremities General upper extremity: Normal ROM General lower extremity: Normal ROM - Neurological Neuro grossly intact: Yes Motor strength normal: LUE, RUE, LLE, RLE Notes: Ambulatory with steady gait - Psychological Associated symptoms: Other - Patient appears to be grossly disorganized. He appears to be responding to internal stimuli, looking around the room, limited eye contact, has a hard time finishing thought process - Skin Skin Temperature: Warm Course - Re-evaluation Re-evalutation: 54-year-old male arrives with paranoid thoughts, believing that someone is out to harm him. He denies any active threats that have occurred. On exam he appears to be grossly disorganized schizophrenic state, responding to internal stimuli and has some thought blocking occurring. He overall is pleasant and cooperative, vital signs stable. I see that olanzapine is listed in his medication list, will start with an oral dose as he is not aggressive or agitated. Can upgrade meds if this occurs. Patient undergo laboratory evaluation. He will need behavioral health consult in the morning. 09/14/20 21:50 Minimal leukocytosis, given the increased hemoglobin suspect this is a hemoconcentration effect. Mild hyponatremia/hypochloremia, again suspect due to poor p.o. intake, have ordered 1 L of fluids. We will also address the mild hyperkalemia 5.1, no EKG changes. Creatinine elevated but not true YRIS. Slight elevation of LFTs, decreased compared to prior check last week. Salicylate, APAP and ethanol negative. 09/14/20 23:33 Urine without UTI, does have slightly elevated spec gravity consistent with dehydration. Drug screen negative. Patient is medically cleared at this time. He will board in the ED overnight until he can be seen by behavioral health morning. - Vital Signs Vital signs: Temp Pulse Resp BP Pulse Ox 97.9 F 92 27 H 107/77 93 09/14/20 20:00 09/14/20 20:00 09/14/20 22:01 09/14/20 22:01 09/14/20 22:01 - Laboratory Result Diagrams: 09/14/20 20:39 10/21/20 20:39 Laboratory results interpreted by me: 09/14/20 09/14/20 09/14/20 20:39 20:39 21:36 WBC 12.3 H Hgb 17.2 H Lymph % (Auto) 8.9 L Absolute Neuts (auto) 9.9 H Seg Neutrophils % 80.2 H Sodium 133.5 L Potassium 5.1 H Chloride 97 L BUN 23 H Creatinine 1.28 H Est GFR (MDRD) Non-Af 58 L AST 113 H ALT 186 H Urine Urobilinogen 2.0 H Salicylates < 1.0 L Acetaminophen < 10 L - EKG Interpretation by Me Additional EKG results interpreted by me: EKG is interpreted by me. Normal sinus rhythm, rate 95. Narrow QRS, QTC within normal limits. No ST segment elevation or depression. Discharge - Discharge Clinical Impression: Paranoid schizophrenia Disposition: OTHER Referrals: SCAR DAVIES, [employer] [employer] PRODUCTION TECHNICIAN-C [Primary Care Provider] - Follow up as needed
[2020-09-14] MEDS ORDERED: RINGERS SOLUTION,LACTATED 1,000 ML IV ONE (21:32)
[2020-09-14] MEDS ORDERED: OLANZAPINE 2.5 MG TABLET PO ONE (21:34)
[2020-09-14 21:59] LABS: APPEARANCE,URINE CLEAR; BILIRUBIN,URINE NEGATIVE (NEGATIVE); COLOR,URINE YELLOW; GLUCOSE, URINE NEGATIVE (NEGATIVE); KETONES,URINE NEGATIVE (NEGATIVE); LEUKOCYTE ESTERASE,URINE NEGATIVE (NEGATIVE); NITRITE,URINE NEGATIVE (NEGATIVE); PROTEIN,URINE NEGATIVE (NEGATIVE); URINE SPECIFIC GRAVITY 1.019
[2020-09-14 22:19] LABS: URINE AMPHETAMINES SCREEN NEGATIVE; URINE BARBITURATES SCREEN NEGATIVE; URINE BENZODIAZEPINES SCREEN NEGATIVE; URINE COCAINE SCREEN NEGATIVE; URINE MARIJUANA (THC) SCREEN NEGATIVE; URINE METHADONE SCREEN NEGATIVE; URINE PHENCYCLIDINE SCREEN NEGATIVE
--- NOTE | 2020-09-15 11:17 | ER Document Report ---
Doctor's Note Notes: 09/15/20 11:52 Patient was seen and evaluated by [facility] patient had some abnormal lab values, elevated white count, slightly of potassium, low sodium, elevated BUN, elevated creatinine. Patient was given IV fluids yesterday. [facility] would like labs redrawn and reevaluated. Has concerns for electrolyte imbalance contributing to his psychosis. Labs were ordered. 09/15/20 14:07 Patient is currently resting comfortably he offers no concerns or complaints at this time. 09/15/20 18:00 [facility] patient is to be discharged home. Patient had been discharged from [facility] yesterday and was transported to [facility] where he initially called 911 and was brought back to the emergency room with a complaint of chest pain and paranoia. [facility] has cleared the patient for discharge. Patient was counseled on need to follow-up outpatient with [facility] as needed. Patient was given strict return to the emergency room guidelines. Return for any new or worsening symptoms. All questions were answered. Patient verbalized understanding and agrees with plan of care. Discharge - Discharge Clinical Impression: Homeless Condition: Stable Disposition: HOME, SELF-CARE Additional Instructions: You have been evaluated both medical and behavioral health teams have been deemed appropriate for discharge. You are reminded of your court appointment tomorrow in [facility] and are highly encouraged to follow through with your appearance. You are reminded the use of emergency services is for emergencies. You have been provided local resource list of area providers, economic resources and programs and mobile crisis contact information. AT ANY TIME, IF YOUR SYMPTOMS CHANGE SIGNIFICANTLY OR WORSEN OR YOU DEVELOP NEW SYMPTOMS, RETURN TO THE EMERGENCY DEPARTMENT IMMEDIATELY FOR RE-EVALUATION. Referrals: [facility] [Provider Group] - Follow up as needed SCAR DAVIES FNP-C [Primary Care Provider] - Follow up as needed
[2020-09-15 13:18] LABS: ABSOLUTE EOSINOPHILS # (AUTO) 0.1 10^3/uL (0.0-0.6); ABSOLUTE LYMPHOCYTES (AUTO) 1.2 10^3/uL (0.5-4.7); ABSOLUTE MONOCYTES (AUTO) 0.7 10^3/uL (0.1-1.4); ABSOLUTE NEUT (AUTO) 4.1 10^3/uL (1.7-8.2); BASOPHILS % (AUTO) 0.6 % (0-2); EOSINOPHILS % (AUTO) 1.4 % (0-6); HEMATOCRIT 44.9 % (37.9-51.0); HEMOGLOBIN 16.2 g/dL (13.5-17.0); MEAN CORPUSCULAR HEMOGLOBIN 33.5 pg (27.0-33.4); MEAN CORPUSCULAR HGB CONC 36.1 g/dL (32.0-36.0); MEAN CORPUSCULAR VOLUME 93 fl (80-97); MONOCYTES % (AUTO) 11.6 % (3-13); PLATELET COUNT 219 10^3/uL (150-450); RED BLOOD COUNT 4.84 10^6/uL (4.35-5.55); RED CELL DISTRIBUTION WIDTH 13.3 % (11.5-14.0); SEGMENTED NEUTROPHILS % (AUTO) 66.4 % (42-78); TOTAL CELLS COUNTED % (AUTO) 100 %; WHITE BLOOD COUNT 6.2 10^3/uL (4.0-10.5)
[2020-09-15 13:38] LABS: ALKALINE PHOSPHATASE 75 U/L (38-126); ANION GAP 9 (5-19); ASPARTATE AMINO TRANSFERASE 114 U/L (17-59); BILIRUBIN,DIRECT 0.3 mg/dL (0.0-0.4); BILIRUBIN,TOTAL 1.2 mg/dL (0.2-1.3); BLOOD UREA NITROGEN 19 mg/dL (7-20); CALCIUM 9.4 mg/dL (8.4-10.2); CARBON DIOXIDE 25 mmol/L (22-30); CHLORIDE 101 mmol/L (98-107); GLUCOSE 85 mg/dL (75-110); POTASSIUM 4.8 mmol/L (3.6-5.0)
--- NOTE | 2020-09-15 17:57 | EKG REPORT ---
SEVERITY:- BORDERLINE ECG - SINUS RHYTHM PROBABLE LEFT ATRIAL ABNORMALITY : Confirmed by: Josue Robison MD 15-Sep-2020 17:56:37
[2020-09-15 18:10] VITALS: BP 113/86
== END 2020-09-15 18:16 | disposition home or self-care (01) ==
LOC: ER 19:53
DX: Z59.0 Homelessness (principal); F22 Delusional disorders; D72.829 Elevated white blood cell count, unspecified; J44.9 Chronic obstructive pulmonary disease, unspecified; I10 Essential (primary) hypertension; F17.200 Nicotine dependence, unspecified, uncomplicated
CPT/HCPCS: 93005; 99284; 96360; 96361; 36415; 80307 ×4; 85025; 80053; 81001; 93010; J3490; J7120

== ENCOUNTER 2020-09-21 17:15 | Emergency (ER) | payer MEDICAID, OTHER ==
--- NOTE | 2020-09-21 17:26 | ER Document Report ---
ED Medical Screen (RME) - General Chief Complaint: Psych Problem Stated Complaint: PSYCH Time Seen by Provider: 09/21/20 17:23 Primary Care Provider: SCAR DAVIES FNP-C [Primary Care Provider] - Follow up as needed Mode of Arrival: Medic Information source: Emergency Med Personnel Notes: 54-year-old male presented to ED for psych issues. He is just mumbling. He does not answer questions. According to the EMS report he was feeling anxious like someone was out to get him. The EMS report states that standards told EMS that he gets like this whenever he does not take his medications. When asked does he take his medications he said he does not have medications. He is mumbling. He does have a history of anxiety and paranoia. EMS report does say that his blood sugar was 136. We will get Accu-Chek as well as all the psych protocol. I have greeted and performed a rapid initial assessment of this patient. A comprehensive ED assessment and evaluation of the patient, analysis of test results and completion of medical decision making process will be conducted by an additional ED providers. TRAVEL OUTSIDE OF THE [place] IN LAST 30 DAYS: No - Related Data Allergies/Adverse Reactions: No Known Allergies Allergy (Verified 09/21/20 17:23) Past Medical History - Past Medical History Cardiac Medical History: Reports: Hx Hypertension Denies: Hx Coronary Artery Disease, Hx Heart Attack Pulmonary Medical History: Reports: Hx COPD Denies: Hx Asthma, Hx Bronchitis, Hx Pneumonia Neurological Medical History: Denies: Hx Cerebrovascular Accident, Hx Seizures Renal/ Medical History: Denies: Hx Peritoneal Dialysis Musculoskeltal Medical History: Denies Hx Arthritis Psychiatric Medical History: Reports: Hx Attention Deficit Hyperactivity Disorder, Hx Schizophrenia Past Surgical History: Reports: Hx Appendectomy - Immunizations Hx Diphtheria, Pertussis, Tetanus Vaccination: Yes Physical Exam - Vital signs Vitals: Temp Pulse Resp BP Pulse Ox 98.4 F 87 16 122/83 98 09/21/20 17:21 09/21/20 17:21 09/21/20 17:21 09/21/20 17:21 09/21/20 17:21 Course - Vital Signs Vital signs: Temp Pulse Resp BP Pulse Ox 98.4 F 87 16 122/83 98 09/21/20 17:21 09/21/20 17:21 09/21/20 17:21 09/21/20 17:21 09/21/20 17:21 Doctor's Discharge - Discharge Referrals: SCAR DAVIES, OPERATING ROOM SURGICAL TECHNICIAN-C [Primary Care Provider] - Follow up as needed
[2020-09-21 17:53] LABS: ABSOLUTE BASOPHILS # (AUTO) 0.1 10^3/uL (0.0-0.2); ABSOLUTE LYMPHOCYTES (AUTO) 2.2 10^3/uL (0.5-4.7); ABSOLUTE MONOCYTES (AUTO) 0.7 10^3/uL (0.1-1.4); BASOPHILS % (AUTO) 0.8 % (0-2); EOSINOPHILS % (AUTO) 0.4 % (0-6); HEMATOCRIT 44.1 % (37.9-51.0); HEMOGLOBIN 15.7 g/dL (13.5-17.0); LYMPHOCYTES % (AUTO) 27.3 % (13-45); MEAN CORPUSCULAR HEMOGLOBIN 33.1 pg (27.0-33.4); MEAN CORPUSCULAR HGB CONC 35.5 g/dL (32.0-36.0); MEAN CORPUSCULAR VOLUME 93 fl (80-97); MONOCYTES % (AUTO) 9.1 % (3-13); PLATELET COUNT 299 10^3/uL (150-450); RED BLOOD COUNT 4.73 10^6/uL (4.35-5.55); RED CELL DISTRIBUTION WIDTH 13.2 % (11.5-14.0); SEGMENTED NEUTROPHILS % (AUTO) 62.4 % (42-78); TOTAL CELLS COUNTED % (AUTO) 100 %
[2020-09-21 18:11] LABS: BLOOD UREA NITROGEN 11 mg/dL (7-20); CALCIUM 9.6 mg/dL (8.4-10.2); GLUCOSE 107 mg/dL (75-110)
[2020-09-21 18:12] LABS: ALBUMIN 4.1 g/dL (3.5-5.0); ALKALINE PHOSPHATASE 76 U/L (38-126); ANION GAP 8 (5-19); ASPARTATE AMINO TRANSFERASE 61 U/L (17-59); BILIRUBIN,DIRECT 0.2 mg/dL (0.0-0.4); BILIRUBIN,TOTAL 0.8 mg/dL (0.2-1.3); CARBON DIOXIDE 24 mmol/L (22-30); CHLORIDE 104 mmol/L (98-107); POTASSIUM 4.1 mmol/L (3.6-5.0); TOTAL PROTEIN 7.3 g/dL (6.3-8.2)
[2020-09-21 18:18] LABS: ACETAMINOPHEN < 10 ug/mL (10-30); ALCOHOL < 10 mg/dL (NONE DETECTED); SALICYLATE < 1.0 mg/dL (2.0-20.0)
[2020-09-21 19:04] LABS: APPEARANCE,URINE SLIGHTLY-CLOUDY; BILIRUBIN,URINE NEGATIVE (NEGATIVE); COLOR,URINE AMBER; GLUCOSE, URINE NEGATIVE (NEGATIVE); KETONES,URINE NEGATIVE (NEGATIVE); LEUKOCYTE ESTERASE,URINE NEGATIVE (NEGATIVE); NITRITE,URINE NEGATIVE (NEGATIVE); PROTEIN,URINE 30 mg/dL (NEGATIVE); URINE SPECIFIC GRAVITY 1.024
[2020-09-21 19:19] LABS: URINE AMPHETAMINES SCREEN NEGATIVE; URINE BARBITURATES SCREEN NEGATIVE; URINE BENZODIAZEPINES SCREEN NEGATIVE; URINE COCAINE SCREEN NEGATIVE; URINE METHADONE SCREEN NEGATIVE; URINE PHENCYCLIDINE SCREEN NEGATIVE
[2020-09-21 19:24] LABS: URINE MARIJUANA (THC) SCREEN UNCONFIRMED POSITIVE
--- NOTE | 2020-09-21 19:52 | ER Document Report ---
ED General <ELKIN TREJO - Last Filed: 09/21/20 20:21> - General Mode of Arrival: Medic TRAVEL OUTSIDE OF THE [place] IN LAST 30 DAYS: No <BRADLEY ROJO - Last Filed: 09/21/20 20:29> - General Chief Complaint: Psych Problem Stated Complaint: PSYCH Time Seen by Provider: 09/21/20 17:23 Primary Care Provider: [facility] [Outside] - Follow up as needed (Local Voluntary Inpatient.) [facility] [Outside] - Follow up as needed [facility] [Outside] - Follow up as needed (To initiate walk in Mondays-Fridays 8:00Am-4:30PM. They do dual diagnosis mental health and substance abuse services. You are recommended to walk in tomorrow morning.) [facility] [Outside] - Follow up as needed SCAR DAVIES FNP-C [Primary Care Provider] - Follow up as needed Notes: Triage notes: 54-year-old male presented to ED for psych issues. He is just mumbling. He does not answer questions. According to the EMS report he was feeling anxious like someone was out to get him. The EMS report states that standards told EMS that he gets like this whenever he does not take his medications. When asked does he take his medications he said he does not have medications. He is mumbling. He does have a history of anxiety and paranoia. EMS report does say that his blood sugar was 136. We will get Accu-Chek as well as all the psych protocol. My notes: Patient is a 54-year-old white male with a history of "mental problems". Who presents to the emergency department via EMS. Patient is a poor historian. When asked multiple times what brings him here or how we can help him this eveni ng he states he does not know. I asked him where he lives he states he does not know. He occasionally answers questions coherently but then states that he is confused. He states that he supposed to be on many medicines for his mental problems. According to EMS from triage the patient told them he was feeling anxious and paranoid. Consistent with his report of needing to take medications. History otherwise limited (BRADLEY ROJO) - Related Data Allergies/Adverse Reactions: No Known Allergies Allergy (Verified 09/21/20 17:23) Past Medical History - General Information source: Emergency Med Personnel Cannot obtain history due to: Uncooperative - Social History Smoking Status: Current Every Day Smoker Chew tobacco use (# tins/day): No Frequency of alcohol use: None Drug Abuse: None Family History: Reviewed & Not Pertinent - Past Medical History Cardiac Medical History: Reports: Hx Hypertension Denies: Hx Coronary Artery Disease, Hx Heart Attack Pulmonary Medical History: Reports: Hx COPD Denies: Hx Asthma, Hx Bronchitis, Hx Pneumonia Neurological Medical History: Denies: Hx Cerebrovascular Accident, Hx Seizures Renal/ Medical History: Denies: Hx Peritoneal Dialysis Musculoskeletal Medical History: Denies Hx Arthritis Psychiatric Medical History: Reports: Hx Attention Deficit Hyperactivity Disorder, Hx Schizophrenia Past Surgical History: Reports: Hx Appendectomy - Immunizations Hx Diphtheria, Pertussis, Tetanus Vaccination: Yes <BRADLEY ROJO - Last Filed: 09/21/20 20:29> Review of Systems - Review of Systems -: Yes ROS unobtainable due to patient's medical condition <BRADLEY ROJO - Last Filed: 09/21/20 20:29> Physical Exam - General General appearance: Alert In distress: None - HEENT Head: Normocephalic, Atraumatic Eyes: Normal Conjunctiva: Normal Pupils: PERRL - Respiratory Respiratory status: No respiratory distress - Cardiovascular Rhythm: Other - Regular pulse rate - Extremities General upper extremity: No: Edema General lower extremity: No: Edema - Neurological Neuro grossly intact: Yes Cognition: Other - Unable to assess accurately Diana Coma Scale Eye Opening: Spontaneous Speech: Normal - Psychological Associated symptoms: Flat affect, Uncooperative - Skin Skin Temperature: Warm Skin Moisture: Dry Skin Color: Other - Nicotine stains noted on the fingers <BRADLEY ROJO - Last Filed: 09/21/20 20:29> - Vital signs Vitals: Temp Pulse Resp BP Pulse Ox 98.4 F 87 16 122/83 98 09/21/20 17:21 09/21/20 17:21 09/21/20 17:21 09/21/20 17:21 09/21/20 17:21 - Respiratory Notes: Equal rise and fall noted (BRADLEY ROJO) Course - Laboratory Result Diagrams: 09/21/20 17:38 09/21/20 17:38 <ELKIN TREJO - Last Filed: 09/21/20 20:21> - Laboratory Result Diagrams: 09/21/20 17:38 09/21/20 17:38 <BRADLEY ROJO - Last Filed: 09/21/20 20:29> - Re-evaluation Re-evalutation: 09/21/20 19:51 Patient's medical work-up has been completed. He would not allow EKG testing. He is otherwise medically cleared and awaiting psychiatric consultation. 09/21/20 20:28 Patient evaluated by psychiatry team in consultation with Dr. Taylor who is familiar with this patient. They recommend no further care here in the department and advised the patient is appropriate for discharge. Patient is medically cleared for discharge. He was given instructions for outpatient resources. Recommended he follow-up as advised and return here or any ER immediately with any new, persistent or worsening symptoms. (BRADLEY ROJO) - Vital Signs Vital signs: Temp Pulse Resp BP Pulse Ox 98.4 F 87 16 122/83 98 09/21/20 17:21 09/21/20 17:21 09/21/20 17:21 09/21/20 17:21 09/21/20 17:21 - Laboratory Laboratory results interpreted by me: 09/21/20 09/21/20 17:38 18:39 Sodium 135.9 L AST 61 H ALT 123 H Urine Protein 30 H Urine Urobilinogen 4.0 H Salicylates < 1.0 L Acetaminophen < 10 L Discharge <ELKIN TREJO - Last Filed: 09/21/20 20:21> <BRADLEY ROJO - Last Filed: 09/21/20 20:29> - Discharge Clinical Impression: Cannabis abuse, Homeless Psychosis Qualifiers: Psychosis type: unspecified psychosis type Qualified Code(s): F29 - Unspecified psychosis not due to a substance or known physiological condition Condition: Stable Disposition: HOME, SELF-CARE Additional Instructions: You have been evaluated by both medical and behavioral health teams for psychosis, cannabis use, and homelessness (however you have an address listed [address] the past four visits). You have been deemed appropriate for discharge. While in the emergency department you received the following services: Medical screening and assessment, nursing services, dietary services, pharmacological services, one-on-one counseling and/or psychotherapy, environmental services, and continuous observation by a patient director of public safety. Altered Mental Status (Psychosis, however able to carry on dialogue conversation and answer questions appropriately so did not seem to present as if responding to internal stimuli, you could express needs/wants/thoughts) An altered mental status is a change in the normal functioning of the brain. This alteration of function can range from minor decreased brain function with some forgetfulness and confusion to complete loss of consciousness and coma. There are many possible causes of an altered mental status and include brain injuries such as trauma or strokes, problems with oxygen supply to the brain, fever and infections of the brain and/or elsewhere in the body, metabolic abnormalities such as low or high blood sugar, overdoses or excessive medication ingestion, and mental and psychiatric illnesses. Sometimes the altered mental status resolves and a definite cause is not determined. If a cause for your altered mental status was found, it has likely been corrected. Your evaluation has not shown any condition that requires that you be admitted to the hospital. It is believed that you are safe to leave and return to your home. If you have a return of your symptoms, you should return for re-evaluation. Follow Up Care: You are recommended to follow up with [facility] and can walk in first thing tomorrow (09/22/2020) morning to initiate services. They are open from 8:00AM-4:30PM. You should request medication management and therapy. You have also been provided the [facility] contact information for voluntary inpatient treatment, as well as both local mobile crisis numbers. You have also been provided the local economic resource sheet which lists the homeless long-term and food snyder. If your symptoms persist or worsen contact your physician immediately, utilize mobile crisis or [facility], or return to the emergency department (after you have ut ilized these other resources). Referrals: SCAR DAVIES, SPINE SURGEON-C [Primary Care Provider] - Follow up as needed [facility] [Outside] - Follow up as needed [facility] [Outside] - Follow up as needed [facility] [Outside] - Follow up as needed (To initiate walk in Mondays-Fridays 8:00Am-4:30PM. They do dual diagnosis mental health and substance abuse services. You are recommended to walk in tomorrow morning.) [facility] [Outside] - Follow up as needed (Local Voluntary Inpatient.)
[2020-09-21 21:06] VITALS: BP 131/76
== END 2020-09-21 21:06 | disposition home or self-care (01) ==
LOC: ER 17:15
DX: F29 Unspecified psychosis not due to a substance or known physiological condition (principal); F12.10 Cannabis abuse, uncomplicated; Z59.0 Homelessness; I10 Essential (primary) hypertension
CPT/HCPCS: 36415; 80053; 80307; 81001; 85025; 99284